=== PATIENT | male | born 2000 | race Caucasian/White ===

== ENCOUNTER → 2020-07-11 10:11 | Outpatient (BNVA) | payer OTHER, SELFPAY | PROVIDERS: Visit Provider Nurse Practitioner Family | DX: J02.9 Acute pharyngitis, unspecified (principal); J06.9 Acute upper respiratory infection, unspecified; B96.89 Other specified bacterial agents as the cause of diseases classified elsewhere | CPT/HCPCS: 87071; 87880 ==

== ENCOUNTER → 2020-12-17 17:47 | Outpatient (BNVA) | payer OTHER, SELFPAY | PROVIDERS: Visit Provider Registered Nurse Neonatal Intensive Care | DX: J02.9 Acute pharyngitis, unspecified (principal); B96.89 Other specified bacterial agents as the cause of diseases classified elsewhere; Z68.42 Body mass index [BMI] 45.0-49.9, adult; Z71.89 Other specified counseling | CPT/HCPCS: 87880 ==

== ENCOUNTER → 2021-03-24 14:20 | Outpatient (BNVA) | payer OTHER, SELFPAY | PROVIDERS: Visit Provider Nurse Practitioner Family | DX: Z20.822 Contact with and (suspected) exposure to COVID-19 (principal); J06.9 Acute upper respiratory infection, unspecified | CPT/HCPCS: 87400; 87635 ==

== ENCOUNTER 2022-02-23 01:53 | Emergency (ER) | payer SELFPAY ==
[2022-02-23 01:59] VITALS: BP 173/104; PULSE 126; RESP 20; O2SAT 97; BMI 45.0
--- NOTE | 2022-02-23 02:05 | CTR_ITS ---
PROCEDURE INFORMATION: Exam: CT Abdomen And Pelvis Without Contrast Exam date and time: 02/23/2022 2:26 AM Age: 21 years old Clinical indication: Abdominal pain; Localized; Patient HX: C/O left sided abd pain TECHNIQUE: Imaging protocol: Computed tomography of the abdomen and pelvis without contrast. Radiation optimization: All CT scans at this facility use at least one of these dose optimization techniques: automated exposure control; mA and/or kV adjustment per patient size (includes targeted exams where dose is matched to clinical indication); or iterative reconstruction. COMPARISON: No relevant prior studies available. RADIATION DOSE METRICS: Total DLP (mGy-cm): 1458.43 FINDINGS: Liver: Fatty liver. Gallbladder and bile ducts: No calcified stones. No ductal dilation. Pancreas: No ductal dilation. Spleen: No splenomegaly. Adrenal glands: Normal. No mass. Kidneys and ureters: No hydronephrosis. Stomach and bowel: No obstruction. No mucosal thickening. Appendix: No evidence of appendicitis. Intraperitoneal space: No free air. No significant fluid collection. Vasculature: No abdominal aortic aneurysm. Lymph nodes: No enlarged lymph nodes. Urinary bladder: Unremarkable as visualized. Reproductive: Unremarkable as visualized. Bones/joints: Unremarkable. No acute fracture. Soft tissues: Unremarkable. CT/CT abdomen pelvis wo con [id number] IMPRESSION: No acute findings.
--- NOTE | 2022-02-23 02:12 | ED_ITS ---
HPI - Abdominal Pain General: Chief Complaint: Abdominal Pain Stated Complaint: Left Side ABD Pain Time Seen by Provider: 02/23/22 02:05 Source: patient Mode of arrival: ambulatory Limitations: no limitations History of Present Illness: 21-year-old male states has been having left lower quadrant pain over the last 2 days. He states is been sharp in nature he rates his pain a 7 out of 10 currently.He denies any radiation of his pain. He denies any vomiting or diarrhea denies any fevers denies any worsening proving factors. Associated Symptoms: Denies chills, dysuria and fever(s) Review of Systems Const: Denies: fever(s), chills, body aches or change in appetite Eyes: Denies: blurry vision or eye discomfort ENMT: Denies: throat pain or dental pain Card: Denies: chest pain Resp: Denies: dyspnea GI: Reports: abdominal pain : Denies: dysuria Musc: Denies: neck pain or back pain Skin/Breast: Denies: rash Neuro: Denies: headache(s) Psych: Denies: depression Pratik/Lymph: Denies: easy bruising All/Imm: Denies: urticaria PFS ED PFSH: Medical History (Updated 02/23/22 @ 04:04 by Kobe Medellin MD) No pertinent past medical history Social History Smoking and tobacco status: never smoked Physical Exam Const: COMMON NORMALS: no acute distress, patient oriented x3 and healthy appearing HENMT: COMMON NORMALS: normocephalic and atraumatic HEAD & SCALP: normocephalic and atraumatic Eye: COMMON NORMALS: Equal, round and reactive pupils present and EOMs intact bilaterally PUPIL: Yes Equal, round and reactive pupils present Neck/C-Spine: COMMON NORMALS: full ROM and supple Chest: COMMONS NORMALS: normal inspection of the chest and normal palpation of entire chest wall Resp: COMMON NORMALS: normal respiratory effort, No retractions, No use of accessory muscles and clear to auscultation bilaterally AUSCULTATION: clear to auscultation bilaterally Cardio: COMMON NORMALS: regular rate, regular rhythm and No murmurs present (Cardio) RATE: regular rate RHYTHM: regular rhythm GI: COMMON NORMALS: Normal to inspection, nondistended, normoactive bowel sounds present, Soft to palpation and no masses PALPATION: Yes Soft to palpation and Yes Tenderness to palpation present (GI) Details: LLQ Extremity: COMMON NORMALS: normal to inspection and full ROM Neuro: COMMON NORMALS: patient oriented x3, moves all extremities and no focal motor deficits Psych: COMMON NORMALS: mental status grossly normal, Normal thought process present and cooperative THOUGHT PROCESS: Normal thought process present Skin: COMMON NORMALS: no rashes or lesions noted and no wounds GENERAL SKIN EXAM: no rashes or lesions noted Course Vital Signs: Vital signs: Vital Signs Pulse Rate 110 H 02/23/22 02:50 Respiratory Rate 15 02/23/22 02:50 Blood Pressure 168/94 02/23/22 02:50 Pulse Oximetry 98 02/23/22 02:50 Oxygen Delivery Me thod 02/23/22 02:20 MDM - Abdominal Pain Medical Decision Making Patient presents here with abdominal pain CT here shows no acute abnormalities blood work is normal as well. He is stable for discharge she is to follow-up PCP and return if worsening. Lab Data 02/23/22 02:20 02/23/22 02:20 Labs/Radiology: Radiology Impressions Abdomen/Pelvis CT 02/23/22 02:05 IMPRESSION: No acute findings. Laboratory Results WBC 14.7 10^3/uL (4.0-10.0) H 02/23/22 02:20 RBC 5.16 10^6/uL (4.1-5.3) 02/23/22 02:20 Hgb 15.0 g/dL (11.7-16.6) 02/23/22 02:20 Hct 45.9 % (42.0-52.0) 02/23/22 02:20 MCV 89.0 fl (80-94) 02/23/22 02:20 MCH 29.1 pg (28.0-34.0) 02/23/22 02:20 MCHC 32.7 g/dL (30.0-36.0) 02/23/22 02:20 RDW 13.1 % (12.1-15.1) 02/23/22 02:20 Plt Count 337 10^3/cmm (130-400) 02/23/22 02:20 MPV 10.3 fL (7.4-10.4) 02/23/22 02:20 Neut % (Auto) 55.4 % 02/23/22 02:20 Lymph % (Auto) 32.5 % 02/23/22 02:20 Mcmullen % (Auto) 10.3 % 02/23/22 02:20 Eos % (Auto) 1.0 % 02/23/22 02:20 Baso % (Auto) 0.3 % 02/23/22 02:20 Neut # (Auto) 8.13 10^3/uL (1.8-7.7) H 02/23/22 02:20 Lymph # (Auto) 4.8 10^3/uL (0.8-4.8) 02/23/22 02:20 Mcmullen # (Auto) 1.5 10^3/uL (0.2-0.9) H 02/23/22 02:20 Eos # (Auto) 0.2 10^3/uL (0.0-0.8) 02/23/22 02:20 Baso # (Auto) 0.0 10^3/uL (0.0-0.1) 02/23/22 02:20 Nucleated RBC % (auto) 0 % 02/23/22 02:20 Nucleated RBCs # 0.0 /100WBC 02/23/22 02:20 Sodium 136 mmol/L (136-145) 02/23/22 02:20 Potassium 3.7 mmol/L (3.5-5.1) 02/23/22 02:20 Chloride 99 mmol/L (98-107) 02/23/22 02:20 Carbon Dioxide 24 mmol/L (22-29) 02/23/22 02:20 Anion Gap 16.7 (5-19) 02/23/22 02:20 BUN 19 mg/dL (6-20) 02/23/22 02:20 Creatinine 0.9 mg/dL (0.7-1.2) 02/23/22 02:20 GFR Calculation 104.6 mL/min (90-130) 02/23/22 02:20 Glucose 121 mg/dL (65-115) H 02/23/22 02:20 Calculated Osmolality 286 mOsm/kg (285-295) 02/23/22 02:20 Calcium 10.1 mg/dL (8.5-10.5) 02/23/22 02:20 Total Bilirubin 0.3 mg/dL (0.15-1.2) 02/23/22 02:20 AST 25 U/L (0-40) 02/23/22 02:20 ALT 43 U/L (0-41) H 02/23/22 02:20 Alkaline Phosphatase 95 U/L (40-130) 02/23/22 02:20 Total Protein 7.6 g/dL (6.6-8.7) 02/23/22 02:20 Albumin 4.6 g/dL (3.5-5.2) 02/23/22 02:20 Globulin 3.0 g/dL (1.3-4.6) 02/23/22 02:20 Lipase 23 U/L (13-60) 02/23/22 02:20 Urine Color Yellow (Yellow) 02/23/22 02:20 Urine Appearance Clear (CLEAR) 02/23/22 02:20 Urine pH 6 (5-7) 02/23/22 02:20 Ur Specific [place] 1.020 (1.005-1.030) 02/23/22 02:20 Urine Protein Trace (Negative) 02/23/22 02:20 Urine Glucose (UA) Norm (Normal) 02/23/22 02:20 Urine Ketones Negative (Negative) 02/23/22 02:20 Urine Blood Neg (Negative) 02/23/22 02:20 Urine Nitrate Negative (Negative) 02/23/22 02:20 Urine Bilirubin Neg (Negative) 02/23/22 02:20 Urine Urobilinogen Norm mg/dL (Negative) 02/23/22 02:20 Ur Leukocyte Esterase Negative (Negative) 02/23/22 02:20 Urine RBC 0-4 /hpf (0-2) H 02/23/22 02:20 Urine WBC None /hpf (0-5) 02/23/22 02:20 Ur Squamous Epith Cells 0-4 /hpf (0-5) H 02/23/22 02:20 Amorphous Sediment Not Reportable 02/23/22 02:20 Urine Bacteria None /hpf (NONE) 02/23/22 02:20 Discharge Plan Discharge Patient Disposition: Home Clinical Impression: Abdominal pain Condition: Stable Prescriptions: New dicyclomine 20 mg tablet 20 mg PO TID PRN (Reason: abd pain) Qty: 20 0RF No Action amoxicillin 500 mg tablet 500 mg PO BID 10 Days Qty: 20 0RF Discharge Orders: Discharge ED (Routine); Ordered 02/23/22 Ordered By: Kobe Medellin Discharge Diet: Advance as tolerated Discharge Activity: Resume usual activity Patient Instructions: Abdominal Pain (ED) Coding Level of Care Code ED Ship Officer for Macyg Fwd Exam Comprehensive
[2022-02-23 02:20] VITALS: BP 168/94; PULSE 119; RESP 16; O2SAT 97
[2022-02-23] MEDS: sodium chloride 0.9% 1,000 ML 999 ML IV (02:22)
[2022-02-23 02:23] VITALS: RESP 17; O2SAT 97
[2022-02-23] MEDS: ondansetron 2 mg/ML SDV 2 mL 4 MG IVP (02:23)
[2022-02-23] MEDS: morphine 4 mg/mL SDV 1 mL IVP (02:23)
[2022-02-23 02:28] LABS: Basophils % 0.3 %; Eosinophils # 0.2 10^3/uL (0.0-0.8); Hematocrit 45.9 % (42.0-52.0); Lymphocytes # 4.8 10^3/uL (0.8-4.8); Lymphocytes % 32.5 %; Mean Corpuscular HGB Conc 32.7 g/dL (30.0-36.0); Mean Corpuscular Hemoglobin 29.1 pg (28.0-34.0); Mean Platelet Volume 10.3 fL (7.4-10.4); Monocytes # 1.5 10^3/uL (0.2-0.9); Monocytes % 10.3 %; Neutrophils # 8.13 10^3/uL (1.8-7.7); Neutrophils % 55.4 %; Nucleated Red Blood Cells % 0 %; Platelet Count 337 10^3/cmm (130-400); Red Blood Count 5.16 10^6/uL (4.1-5.3); Red Cell Distribution Width 13.1 % (12.1-15.1); White Blood Count 14.7 10^3/uL (4.0-10.0)
[2022-02-23 02:42] LABS: Add Urine Culture? No; Add Urine Microscopic? YES; Bilirubin Urine Neg (Negative); Blood Urine Neg (Negative); Glucose Urine UA Norm (Normal); Ketones Urine Negative (Negative); Leukocyte Esterase Urine Negative (Negative); Nitrate Urine Negative (Negative); Protein Urine Trace (Negative); RBC Urine 0-4 /hpf (0-2); Squamous Epithelial Cell Urine 0-4 /hpf (0-5); Urine Appearance Clear (CLEAR); Urine Color Yellow (Yellow); Urobilinogen Urine Norm (Negative); pH Urine 6 (5-7)
[2022-02-23 02:46] LABS: Alanine Aminotransferase 43 U/L (0-41); Albumin Level 4.6 g/dL (3.5-5.2); Alkaline Phosphatase 95 U/L (40-130); Anion Gap 16.7 (5-19); Aspartate Amino Transferase 25 U/L (0-40); Blood Urea Nitrogen 19 mg/dL (6-20); Calcium 10.1 mg/dL (8.5-10.5); Carbon Dioxide 24 mmol/L (22-29); Chloride 99 mmol/L (98-107); Glomerular Filtration Rate 104.6 mL/min (90-130); Glucose 121 mg/dL (65-115); Lipase 23 U/L (13-60); Osmolality Calculated 286 mOsm/kg (285-295); Potassium 3.7 mmol/L (3.5-5.1); Sodium 136 mmol/L (136-145); Total Bilirubin 0.3 mg/dL (0.15-1.2); Total Protein 7.6 g/dL (6.6-8.7)
[2022-02-23 02:50] VITALS: BP 168/94; PULSE 110; RESP 15; O2SAT 98
[2022-02-23 04:15] VITALS: BP 124/68; PULSE 67; RESP 16; O2SAT 96
== END 2022-02-23 04:20 | disposition home or self-care (01) ==
PROVIDERS: Nurse Practitioner Family; Emergency Provider Emergency Medicine
DX: R10.32 Left lower quadrant pain (principal)
CPT/HCPCS: 74176; 80053; 81001; 83690; 85025; 96361; 96374; 96375; 99285; J2270; J2405; J7030

== ENCOUNTER 2022-02-28 20:46 | Emergency (ER) | payer SELFPAY ==
[2022-02-28 20:49] VITALS: BP 151/96; PULSE 103; RESP 21; TEMP 37.5; O2SAT 98
--- NOTE | 2022-02-28 22:23 | W.ED.ABDPA2 ---
HPI - Abdominal Pain General: Chief Complaint: Abdominal Pain Stated Complaint: stomach pain Time Seen by Provider: 02/28/22 22:16 History of Present Illness: 21-year-old male patient comes in today for complaints of left side abdominal pain. Patient reports that he has been ill for about 1 week now. Patient was seen about 5 days ago and was cleared of appendicitis or any acute illness causing his abdominal pain. Patient has been treating himself for constipation. Patient appears nontoxic. Patient appears in mild pain. Associated Symptoms: Reports constipation; Denies fever(s) Review of Systems Const: Denies: fever(s) GI: Reports: abdominal pain and constipation [facility] ED PFSH: Medical History (Updated 02/28/22 @ 23:26 by CHRISTOFER Domínguez) No pertinent past medical history Social History Smoking and tobacco status: never smoked Physical Exam Const: COMMON NORMALS: alert HENMT: COMMON NORMALS: normocephalic HEAD & SCALP: normocephalic Neck/C-Spine: COMMON NORMALS: full ROM Resp: COMMON NORMALS: normal respiratory effort and clear to auscultation bilaterally AUSCULTATION: clear to auscultation bilaterally Cardio: COMMON NORMALS: regular rate and regular rhythm RATE: regular rate RHYTHM: regular rhythm GI: COMMON NORMALS: Soft to palpation AUSCULTATION: Yes normoactive bowel sounds PALPATION: Yes Soft to palpation and Yes Tenderness to palpation present (GI) Details: LLQ : COMMON NORMALS: Yes no CVA tenderness BLADDER/KIDNEY EXAM: Yes no CVA tenderness Back/Pelvis: COMMON NORMALS: no CVA tenderness Neuro: SENSORIUM/ORIENTATION: Yes alert Course Vital Signs: Vital signs: Vital Signs Temperature 99.5 F 02/28/22 20:49 Pulse Rate 103 H 02/28/22 20:49 Respiratory Rate 21 H 02/28/22 20:49 Blood Pressure 151/96 02/28/22 20:49 Pulse Oximetry 98 02/28/22 20:49 Oxygen Delivery Me thod 02/28/22 20:49 MDM - Abdominal Pain Medical Decision Making Patient comes in today for concerns of persistent abdominal pain for about 1 week. On exam abdomen soft with some mild tenderness in the left lower quadrant. Vital signs are normal except for some mild elevation of blood pressure 151 systolic. Differential diagnosis includes but not limited to gastroenteritis, constipation, gastritis, diverticulitis. Reviewed imaging done 5 days ago in the emergency department that included a CT of the abdomen it showed no abnormalities at that time. Repeat labs were improved from prior exam. KUB done showed increased constipation with no sign of obstruction. Believe the patient probably has some increased constipation most likely due to the dicyclomine he was started on. Recommend starting MiraLAX instead of laxative use for his constipation. Suspect the patient was using Ex-Lax and milk of magnesia which is causing more of abdominal discomfort. Reviewed this with patient with recommendations for follow-up with primary care for further instruction. Patient reported understanding and agreed to plan. Lab Data 02/28/22 22:47 02/28/22 22:47 Labs/Radiology: Radiology Impressions KUB X-Ray 02/28/22 22:28 IMPRESSION: [id number] constipation without dilation to indicate obstruction. Laboratory Results WBC 10.3 10^3/uL (4.0-10.0) H 02/28/22 22:47 RBC 4.96 10^6/uL (4.1-5.3) 02/28/22 22:47 Hgb 14.5 g/dL (11.7-16.6) 02/28/22 22:47 Hct 44.5 % (42.0-52.0) 02/28/22 22:47 MCV 89.7 fl (80-94) 02/28/22 22:47 MCH 29.2 pg (28.0-34.0) 02/28/22 22:47 MCHC 32.6 g/dL (30.0-36.0) 02/28/22 22:47 RDW 13.0 % (12.1-15.1) 02/28/22 22:47 Plt Count 307 10^3/cmm (130-400) 02/28/22 22:47 MPV 10.9 fL (7.4-10.4) H 02/28/22 22:47 Neut % (Auto) 55.6 % 02/28/22 22:47 Lymph % (Auto) 32.9 % 02/28/22 22:47 [place] % (Auto) 8.9 % 02/28/22:47 Eos % (Auto) 1.7 % 02/28/22 22:47 Baso % (Auto) 0.5 % 02/28/22 22:47 Neut # (Auto) 5.72 10^3/uL (1.8-7.7) 02/28/22 22:47 Lymph # (Auto) 3.4 10^3/uL (0.8-4.8) 02/28/22 22:47 [place] # (Auto) 0.9 10^3/uL (0.2-0.9) 02/28/22 22:47 Eos # (Auto) 0.2 10^3/uL (0.0-0.8) 02/28/22 22:47 Baso # (Auto) 0.1 10^3/uL (0.0-0.1) 02/28/22 22:47 Nucleated RBC % (auto) 0 % 02/28/22 22: Nucleated RBCs # 0.0 /100WBC 02/28/22 22:47 Sodium 136 mmol/L (136-145) 02/28/22 22:47 Potassium 3.8 mmol/L (3.5-5.1) 02/28/22 22:47 Chloride 101 mmol/L (98-107) 02/28/22 22:47 Carbon Dioxide 24 mmol/L (22-29) 02/28/22 22:47 Anion Gap 14.8 (5-19) 02/28/22 22:47 BUN 13 mg/dL (6-20) 02/28/22 22:47 Creatinine 0.9 mg/dL (0.7-1.2) 02/28/22 22:47 GFR Calculation 104.6 mL/min (90-130) 02/28/22 22:47 Glucose 104 mg/dL (65-115) 02/28/22 22:47 Calculated Osmolality 282 mOsm/kg (285-295) L 02/28/22 22:47 Calcium 9.3 mg/dL (8.5-10.5) 02/28/22 22:47 Total Bilirubin 0.2 mg/dL (0.15-1.2) 02/28/22 22:47 AST 19 U/L (0-40) 02/28/22 22:47 ALT 39 U/L (0-41) 02/28/22 22:47 Alkaline Phosphatase 111 U/L (40-130) 02/28/22 22:47 Total Protein 7.0 g/dL (6.6-8.7) 02/28/22 22:47 Albumin 4.3 g/dL (3.5-5.2) 02/28/22 22:47 Globulin 2.7 g/dL (1.3-4.6) 02/28/22 22:47 Lipase 29 U/L (13-60) 02/28/22 22:47 Urine Color Yellow (Yellow) 02/28/22 23:00 Urine Appearance Clear (CLEAR) 02/28/22 23:00 Urine pH 7 (5-7) 02/28/22 23:00 Ur Specific [place] 1.010 (1.005-1.030) 02/28/22 23:00 Urine Protein Neg (Negative) 02/28/22 23:00 Urine Glucose (UA) Norm (Normal) 02/28/22 23:00 Urine Ketones Negative (Negative) 02/28/22 23:00 Urine Blood Neg (Negative) 02/28/22 23:00 Urine Nitrate Negative (Negative) 02/28/22 23:00 Urine Bilirubin Neg (Negative) 02/28/22 23:00 Urine Urobilinogen Neg mg/dL (Negative) 02/28/22 23:00 Ur Leukocyte Esterase Negative (Negative) 02/28/22 23:00 Discharge Plan Discharge Patient Disposition: Home Clinical Impression: Constipation Qualifiers: Constipation type: unspecified constipation type Qualified Code(s): K59.00 - Constipation, unspecified Abdominal pain Qualifiers: Abdominal location: left lower quadrant Qualified Code(s): R10.32 - Left lower quadrant pain Condition: Stable Prescriptions: New Miralax 17 gram/dose powder 17 g PO BID PRN (Reason: constipation) Qty: 510 0RF ondansetron 4 mg tablet,disintegrating 4 mg PO Q8H PRN (Reason: nausea and vomiting) Qty: 10 0RF No Action amoxicillin 500 mg tablet 500 mg PO BID 10 Days Qty: 20 0RF dicyclomine 20 mg tablet 20 mg PO TID PRN (Reason: abd pain) Qty: 20 0RF Discharge Orders: Discharge ED (Routine); Ordered 03/01/22 Ordered By: Shine Rose Patient Instructions: Abdominal Pain (ED), Opioid Safety, Pain Management Activity Restrictions/Additional Instructions: Use MiraLAX 17 g 3 times a day until good bowel results. Drink plenty of water while using MiraLAX for constipation. Eat a healthy diet with plenty of fresh fruits and vegetables. Follow-up with primary care in 2 to 3 days for recheck. Return to emergency room for worsening symptoms such as inability to hold fluids down, blood in vomit or stool, or new concerns. Coding Level of Care Code ED It Risk Analyst for Justin Oliveros
--- NOTE | 2022-02-28 22:28 | XRR_ITS ---
PROCEDURE INFORMATION: Exam: XR Abdomen Exam date and time: 02/28/2022 10:39 PM Age: 21 years old Clinical indication: Abdominal pain; Additional info: Abd pain TECHNIQUE: Imaging protocol: Radiologic exam of the abdomen. Views: Frontal supine view of the abdomen. 1 View. COMPARISON: CT abdomen pelvis con [id number] 02/23/2022 2:26 AM FINDINGS: Gastrointestinal tract: [id number] constipation without dilation to indicate obstruction. Bones/joints: Unremarkable. XR/XR KUB [id number] IMPRESSION: Vrbr-wy-[id number] constipation without dilation to indicate obstruction.
[2022-02-28] MEDS: HYDROcodone-acetaminophen 10-325 mg Tablet 1 TAB PO (22:53)
[2022-02-28 23:06] LABS: Add Urine Microscopic? NO; Charge for UA Resulting for Rev
[2022-02-28 23:10] LABS: Basophils # 0.1 10^3/uL (0.0-0.1); Basophils % 0.5 %; Eosinophils # 0.2 10^3/uL (0.0-0.8); Eosinophils % 1.7 %; Hematocrit 44.5 % (42.0-52.0); Hemoglobin 14.5 g/dL (11.7-16.6); Lymphocytes # 3.4 10^3/uL (0.8-4.8); Lymphocytes % 32.9 %; Mean Corpuscular HGB Conc 32.6 g/dL (30.0-36.0); Mean Corpuscular Hemoglobin 29.2 pg (28.0-34.0); Mean Corpuscular Volume 89.7 fl (80-94); Mean Platelet Volume 10.9 fL (7.4-10.4); Monocytes # 0.9 10^3/uL (0.2-0.9); Monocytes % 8.9 %; Neutrophils # 5.72 10^3/uL (1.8-7.7); Neutrophils % 55.6 %; Nucleated Red Blood Cells % 0 %; Platelet Count 307 10^3/cmm (130-400); Red Blood Count 4.96 10^6/uL (4.1-5.3); White Blood Count 10.3 10^3/uL (4.0-10.0)
[2022-02-28 23:28] LABS: Bilirubin Urine Neg (Negative); Blood Urine Neg (Negative); Glucose Urine UA Norm (Normal); Ketones Urine Negative (Negative); Leukocyte Esterase Urine Negative (Negative); Nitrate Urine Negative (Negative); Protein Urine Neg (Negative); Urine Appearance Clear (CLEAR); Urine Color Yellow (Yellow); Urobilinogen Urine Neg (Negative); pH Urine 7 (5-7)
[2022-02-28 23:40] LABS: Alanine Aminotransferase 39 U/L (0-41); Albumin Level 4.3 g/dL (3.5-5.2); Alkaline Phosphatase 111 U/L (40-130); Anion Gap 14.8 (5-19); Aspartate Amino Transferase 19 U/L (0-40); Blood Urea Nitrogen 13 mg/dL (6-20); Calcium 9.3 mg/dL (8.5-10.5); Carbon Dioxide 24 mmol/L (22-29); Chloride 101 mmol/L (98-107); Globulin 2.7 g/dL (1.3-4.6); Glomerular Filtration Rate 104.6 mL/min (90-130); Glucose 104 mg/dL (65-115); Lipase 29 U/L (13-60); Osmolality Calculated 282 mOsm/kg (285-295); Potassium 3.8 mmol/L (3.5-5.1); Sodium 136 mmol/L (136-145); Total Bilirubin 0.2 mg/dL (0.15-1.2)
== END 2022-03-01 00:40 | disposition home or self-care (01) ==
PROVIDERS: Emergency Provider Nurse Practitioner Family
DX: K59.00 Constipation, unspecified (principal); R10.32 Left lower quadrant pain
CPT/HCPCS: 74018; 80053; 81003; 83690; 85025; 99284

== ENCOUNTER → 2022-08-11 09:37 | Outpatient (BNVA) | payer SELFPAY | DX: J02.9 Acute pharyngitis, unspecified (principal) | CPT/HCPCS: 87880 ==

== ENCOUNTER 2022-11-25 10:07 | Emergency (ER) | payer OTHER, SELFPAY ==
[2022-11-25 10:27] VITALS: BMI 41.3
[2022-11-25 10:28] VITALS: BP 144/86; PULSE 71; RESP 16; TEMP 36.5; O2SAT 97
[2022-11-25] MEDS: tetracaine 0.5% Op Soln 4 mL Btl 1 DROP EYE-LEFT (11:32)
--- NOTE | 2022-11-25 11:34 | ED_ITS ---
HPI - Eye Problem General: Chief complaint: Eye Problems Stated complaint: metal in left eye Time Seen by Provider: 11/25/22 10:32 Source: patient Mode of arrival: ambulatory History of Present Illness: 22-year-old male presents to the emergency room with complaint of redness in the left eye. He was working yesterday and got something in the left eye it is progressively worsened. He is able to visualize a small sarah of something in the lateral portion of the left eye. Just near the iris. He is unsure of his last tetanus shot. 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 Severity: moderate Associated symptoms: Denies fever(s) Review of Systems Const: Denies: fever(s) or chills Eyes: Reports: eye discomfort and eye redness; Denies: change in vision or blurry vision [facility] ED PFSH: Medical History No pertinent past medical history Social History Smoking and tobacco status: never smoked Physical Exam Const: GENERAL APPEARANCE: cooperative and comfortable ORIENTATION/CONSCIOUSNESS: Yes awake, Yes oriented to person, Yes oriented to place and Yes oriented to time HENMT: COMMON NORMALS: normocephalic, atraumatic and hearing grossly normal bilaterally HEAD & SCALP: normocephalic and atraumatic Eye: OTHER: Tetracaine applied to the left eye was able to visualize a small sarah of metallic debris into 3 o'clock position at the very edge of the cornea. Attempted to remove with a cotton swab unsuccessful. Neuro: SENSORIUM/ORIENTATION: Yes oriented to person, Yes oriented to place and Yes oriented to time Skin: COMMON NORMALS: no rashes or lesions noted GENERAL SKIN EXAM: no rashes or lesions noted Course Vital Signs: Vital signs: Vital Signs Temperature 97.7 F 11/25/22 10:28 Pulse Rate 71 11/25/22 10:28 Respiratory Rate 16 11/25/22 10:28 Blood Pressure 144/86 11/25/22 10:28 Pulse Oximetry 97 11/25/22 10:28 Oxygen Delivery Me thod Room Air 11/25/22 10:28 MDM - Eye Problem Medical Decision Making Concerned about this being at the edge of the cornea where it is thin causing damage to the sclera or even lifting up the edge of the cornea when extending the injury will refer to Dr. Georges's office he is given an outpatient appointment for approximately an hour to an hour and a half in his office he was given updated tetanus here hydrocodone for pain single tablet follow-up with Dr. Georges at ophthalmology. Discharge Plan Discharge Patient Disposition: Home Clinical Impression: Foreign body in cornea, left eye, initial encounter Condition: Stable Prescriptions: No Action Prilosec OTC 20 mg Tablet,Delayed Release (Dr/Ec) 20 mg PO BEDTIME Probiotic Blend 2 billion cell-50 mg Capsule 2 cap PO BEDTIME magnesium oxide 400 mg magnesium Tablet 400 mg PO BEDTIME Discharge Orders: Discharge ED (Routine); Ordered 11/25/22 Ordered By: Guy Toussaint Discharge Diet: Usual diet Discharge Activity: Resume usual activity Patient Instructions: Opioid Safety, Pain Management Activity Restrictions/Additional Instructions: He will be discharged from the emergency room to Dr. Georges's office. Dr. Georges is a bunk assembler in [place]. He will review removing the foreign body and follow-up care with you. Coding Level of Care Code ED Chief Gauger for Justin Oliveros
[2022-11-25] MEDS: tetanus-dipt-pertussis 0.5 mL SDV IM (11:44)
[2022-11-25] MEDS: HYDROcodone-acetaminophen 5-325 mg Tablet 1 TAB PO (11:44)
[2022-11-25 11:50] VITALS: PULSE 87; RESP 16; O2SAT 95
== END 2022-11-25 11:52 | disposition home or self-care (01) ==
PROVIDERS: Emergency Provider Family Medicine
DX: T15.02XA Foreign body in cornea, left eye, initial encounter (principal); X58.XXXA Exposure to other specified factors, initial encounter; Z23 Encounter for immunization
CPT/HCPCS: 90471; 90715; 99283

== ENCOUNTER → 2023-06-02 17:31 | Outpatient (BNVA) | payer SELFPAY | PROVIDERS: Visit Provider Nurse Practitioner | DX: R10.9 Unspecified abdominal pain (principal) | CPT/HCPCS: 81000 ==

== ENCOUNTER 2023-07-24 20:31 | Emergency (ER) | payer SELFPAY ==
[2023-07-24 20:34] VITALS: BP 170/90; PULSE 91; RESP 17; TEMP 36.6; O2SAT 98; BMI 43.3
--- NOTE | 2023-07-24 20:42 | ECG_ITS ---
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 Measurements Intervals [place] Rate: 96 P: 31 AL: 145 QRS: 24 QRSD: 102 T: 29 QT: 326 QTc: 413 Interpretive Statements SINUS RHYTHM No previous ECG available for comparison Electronically Signed On 07-24-2023 22:49:28 CDT by Victor Manuel Bocanegra M.D. [id number]
--- NOTE | 2023-07-24 21:17 | W.ED.DIZZY ---
HPI - Dizziness General: Chief Complaint: Dizziness Stated Complaint: dizzy for week Time Seen by Provider: 07/24/23 21:14 History of Present Illness: HPI Narrative: 23-year-old male patient comes in today with complaints of dizziness. Patient appears nontoxic. Patient appears in no pain. Patient does endorse some sinus symptoms. 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 Current occupational exposures/hazards: Yes Current gender identity: Male Physical Exam Const: COMMON NORMALS: alert HENMT: COMMON NORMALS: normocephalic HEAD & SCALP: normocephalic Neck/C-Spine: COMMON NORMALS: full ROM Resp: COMMON NORMALS: normal respiratory effort and clear to auscultation bilaterally AUSCULTATION: clear to auscultation bilaterally Cardio: COMMON NORMALS: regular rate RATE: regular rate GI: COMMON NORMALS: non-tender Back/Pelvis: COMMON NORMALS: thoracic and lumbar spine normal to inspection Extremity: COMMON NORMALS: full ROM Neuro: SENSORIUM/ORIENTATION: Yes alert Skin: COMMON NORMALS: turgor normal GENERAL SKIN EXAM: turgor normal Course Vital Signs: Vital signs: Vital Signs Temperature 98 F 07/24/23 20:34 Pulse Rate 103 H 07/24/23 21:32 Respiratory Rate 17 07/24/23 20:34 Blood Pressure 163/110 07/24/23 21:32 Pulse Oximetry 98 07/24/23 20:34 Oxygen Delivery Me thod Room Air 07/24/23 20:34 MDM - Dizziness Medical Decision Making 23-year-old male patient comes in today with dizziness. On exam patient appears nontoxic. Patient moves all extremities well. Respirations are even lungs are clear to auscultation. No edema is noted in extremities. Patient had some mild orthostatic hypotension with his blood pressure and pulse rate on standing dropping to 130s systolic from 170 systolic and pulse rate going from the 80s to the 125's. Differential diagnosis includes orthostatic hypotension, dehydration, viral syndrome, anxiety about health, intracranial bleed, migraine headache. CT of the head was normal. CBC had some mild leukocytosis at 11,000, CMP was unremarkable. Reviewed exam with patient with recommendations for 1 L of IV fluids due to patient's orthostatic hypotension. Patient refused this and wanted to go home he has been given some meclizine which helped his dizziness. Recommended patient follow-up with primary care in 2 to 3 days for recheck. Prescription for meclizine 25 3 times a day for 5 days was provided. Lab Data 07/24/23 21:47 07/24/23 21:[address] 07/24/23 21:21 IMPRESSION: No acute intracranial abnormality. Laboratory Results WBC 11.45 10^3/uL (3.29-11.43) H 07/24/23 21:47 RBC 5.41 10^6/uL (3.85-5.65) 07/24/23 21:47 Hgb 16.10 g/dL (11.27-16.99) 07/24/23 21:47 Hct 48.3 % (37-53) 07/24/23 21:47 MCV 89.3 fl (82-101) 07/24/23 21:47 MCH 29.8 pg (27-33) 07/24/23 21:47 MCHC 33.3 g/dL (30-55) 07/24/23 21:47 RDW 12.8 % (12.1-15.1) 07/24/23 21:47 Plt Count 317 10^3/cmm (157-399) 07/24/23 21:47 MPV 10.8 fL (7.4-10.4) H 07/24/23 21:47 Neut % (Auto) 52.0 % 07/24/23 21:47 Lymph % (Auto) 35.1 % 07/24/23 21:47 Logan % (Auto) 10.4 % 07/24/23 21:47 Eos % (Auto) 1.7 % 07/24/23 21:47 Baso % (Auto) 0.5 % 07/24/23 21:47 Neut # (Auto) 5.95 10^3/uL (1.8-7.7) 07/24/23 21:47 Lymph # (Auto) 4.0 10^3/uL (0.8-4.8) 07/24/23 21:47 Logan # (Auto) 1.2 10^3/uL (0.2-0.9) H 07/24/23 21:47 Eos # (Auto) 0.2 10^3/uL (0.0-0.8) 07/24/23 21:47 Baso # (Auto) 0.1 10^3/uL (0.0-0.1) 07/24/23 21:47 Nucleated RBC % (auto) 0 % 07/24/23 21:47 Nucleated RBCs # 0.0 /100WBC 07/24/23 21:47 ESR 14 mm/hr (0-10) H 07/24/23 21:47 Sodium 136 mmol/L (136-145) 07/24/23 21:47 Potassium 3.8 mmol/L (3.5-5.1) 07/24/23 21:47 Chloride 100 mmol/L (98-107) 07/24/23 21:47 Carbon Dioxide 23 mmol/L (22-29) 07/24/23 21:47 Anion Gap 16.8 (5-19) 07/24/23 21:47 BUN 20 mg/dL (6-20) 07/24/23 21:47 Creatinine 1.0 mg/dL (0.7-1.2) 07/24/23 21:47 GFR Calculation 91.0 mL/min (90-130) 07/24/23 21:47 Glucose 97 mg/dL (65-115) 07/24/23 21:47 Calculated Osmolality 285 mOsm/kg (285-295) 07/24/23 21:47 Calcium 9.8 mg/dL (8.5-10.5) 07/24/23 21:47 Total Bilirubin 0.2 mg/dL (0.15-1.2) 07/24/23 21:47 AST 18 U/L (0-40) 07/24/23 21:47 ALT 35 U/L (0-41) 07/24/23 21:47 Alkaline Phosphatase 105 U/L (40-130) 07/24/23 21:47 C-Reactive Protein 3.5 mg/L (0.0-4.9) 07/24/23 21:47 Total Protein 7.6 g/dL (6.6-8.7) 07/24/23 21:47 Albumin 4.4 g/dL (3.5-5.2) 07/24/23 21:47 Globulin 3.2 g/dL (1.3-4.6) 07/24/23 21:47 All radiology interpretation(s) finalized by discharge Discharge Plan Discharge Patient Disposition: Home Clinical Impression: Orthostatic hypotension Condition: Stable Prescriptions: New meclizine 25 mg tablet 25 mg PO TID PRN (Reason: dizziness) Qty: 14 0RF No Action dicyclomine 20 mg tablet 40 mg PO TID PRN (Reason: abdominal pain) Qty: 180 2RF Prilosec OTC 20 mg Tablet,Delayed Release (Dr/Ec) 20 mg PO BEDTIME Discharge Orders: Discharge ED (Routine); Ordered 07/24/23 Ordered By: Shine Rose Referrals: Sung Franks MD [Primary Care Provider] - Discharge Diet: Usual diet Discharge Activity: Increase activity as tolerated Patient Instructions: Dizziness (ED) Activity Restrictions/Additional Instructions: Follow-up with primary care in 3 to 5 days for recheck. Drink plenty of water and fluids. Use meclizine as needed for dizziness. Return to ER for new concerns. Coding Level of Care Code ED Bag Bundler for Justin Oliveros
--- NOTE | 2023-07-24 21:21 | CTR_ITS ---
PROCEDURE INFORMATION: Exam: CT Head Without Contrast Exam date and time: 07/24/2023 9:27 PM Age: 23 years old Clinical indication: Dizziness; Patient HX: C/O intermittent dizzines x 1 week TECHNIQUE: Imaging protocol: Computed tomography of the head without contrast. Radiation optimization: All CT scans at this facility use at least one of these dose optimization techniques: automated exposure control; mA and/or kV adjustment per patient size (includes targeted exams where dose is matched to clinical indication); or iterative reconstruction. COMPARISON: No relevant prior studies available. RADIATION DOSE METRICS: Total DLP (mGy-cm): 895.18 FINDINGS: Brain: Normal. No hemorrhage. Unremarkable white matter. No mass effect. Cerebral ventricles: No ventriculomegaly. Paranasal sinuses: Visualized sinuses are unremarkable. No fluid levels. Mastoid air cells: Visualized mastoid air cells are well aerated. Bones/joints: Unremarkable. No acute fracture. Soft tissues: Unremarkable. CT/CT head wo con* [id number] IMPRESSION: No acute intracranial abnormality.
[2023-07-24 21:32] VITALS: BP 136/97; BP 163/110; BP 164/92; PULSE 103; PULSE 114; PULSE 129
[2023-07-24] MEDS: meclizine 25 mg tablet PO (21:32)
[2023-07-24 21:52] LABS: Basophils # 0.1 10^3/uL (0.0-0.1); Basophils % 0.5 %; Eosinophils # 0.2 10^3/uL (0.0-0.8); Eosinophils % 1.7 %; Hematocrit 48.3 % (37-53); Lymphocytes % 35.1 %; Mean Corpuscular HGB Conc 33.3 g/dL (30-55); Mean Corpuscular Hemoglobin 29.8 pg (27-33); Mean Corpuscular Volume 89.3 fl (82-101); Mean Platelet Volume 10.8 fL (7.4-10.4); Monocytes # 1.2 10^3/uL (0.2-0.9); Monocytes % 10.4 %; Neutrophils # 5.95 10^3/uL (1.8-7.7); Nucleated Red Blood Cells % 0 %; Platelet Count 317 10^3/cmm (157-399); Red Blood Count 5.41 10^6/uL (3.85-5.65); Red Cell Distribution Width 12.8 % (12.1-15.1); White Blood Count 11.45 10^3/uL (3.29-11.43)
[2023-07-24 21:56] LABS: Erythrocyte Sedimentation Rate 14 mm/hr (0-10)
[2023-07-24 22:10] LABS: Alanine Aminotransferase 35 U/L (0-41); Albumin Level 4.4 g/dL (3.5-5.2); Alkaline Phosphatase 105 U/L (40-130); Anion Gap 16.8 (5-19); Aspartate Amino Transferase 18 U/L (0-40); Blood Urea Nitrogen 20 mg/dL (6-20); C Reactive Protein 3.5 mg/L (0.0-4.9); Calcium 9.8 mg/dL (8.5-10.5); Carbon Dioxide 23 mmol/L (22-29); Chloride 100 mmol/L (98-107); Creatinine Clr Calc Pharmacy 186.3505; Globulin 3.2 g/dL (1.3-4.6); Glucose 97 mg/dL (65-115); Osmolality Calculated 285 mOsm/kg (285-295); Potassium 3.8 mmol/L (3.5-5.1); Sodium 136 mmol/L (136-145); Total Bilirubin 0.2 mg/dL (0.15-1.2); Total Protein 7.6 g/dL (6.6-8.7)
[2023-07-24 22:51] VITALS: BP 136/71; PULSE 91; RESP 17; TEMP 36.6; O2SAT 98
== END 2023-07-24 22:52 | disposition home or self-care (01) ==
PROVIDERS: Emergency Provider Nurse Practitioner Family; PCP Family Medicine
DX: I95.1 Orthostatic hypotension (principal); F17.290 Nicotine dependence, other tobacco product, uncomplicated
CPT/HCPCS: 36415; 70450; 80053; 85025; 85651; 86140; 93005; 99284; J8597

== ENCOUNTER 2024-04-06 15:34 | Emergency (ER) | payer SELFPAY ==
[2024-04-06] VITALS (8 sets, daily range): BP systolic 143–197; BP diastolic 82–122; PULSE 95–114; RESP 16; TEMP 36.7; O2SAT 95–98; BMI 42.5
--- NOTE | 2024-04-06 15:35 | XRR_ITS ---
PROCEDURE INFORMATION: Exam: XR Chest Exam date and time: 04/06/2024 3:49 PM Age: 23 years old Clinical indication: Pain; Chest pressure; Additional info: Cp TECHNIQUE: Imaging protocol: Radiologic exam of the chest. Views: 1 view. COMPARISON: CR XR KUB [id number] 02/28/2022 10:39 PM FINDINGS: Lungs: Unremarkable. No consolidation. Pleural spaces: Unremarkable. No pleural effusion. No pneumothorax. Heart/Mediastinum: Unremarkable. No cardiomegaly. Bones/joints: Unremarkable. XR/XR chest 1V portable [id number] IMPRESSION: No acute findings.
--- NOTE | 2024-04-06 15:52 | ED_ITS ---
HPI - Chest Pain 2 General: Chief Complaint: Chest Pain Stated Complaint: chest pressure Time Seen by Provider: 04/06/24 15:36 Source: patient Mode of arrival: ambulatory Limitations: no limitations History of Present Illness: 23-year-old male states he has been havi ng intermittent chest pains been going on for roughly a week. He states been a sharp pain has been intermittent nature. States pain currently is a 3 out of 10 he denies any shortness of breath denies any vomiting or diarrhea. Denies any history of heart disease. Related Data Previous Rx's Medication Instructions Recorded omeprazole magnesium 20 mg 20 mg PO BEDTIME #90 tabs 03/06/24 tablet,delayed release (Prilosec OTC) dicyclomine 20 mg tablet 40 mg (2 x 20 mg) PO TID PRN 03/07/24 abdominal pain #180 tabs metoprolol succinate 50 mg 50 mg PO DAILY #30 tabs 04/06/24 tablet,extended release 24 hr Allergies Allergy/AdvReac Type Severity Reaction Status Date / Time No Known Allergies Allergy Verified 07/26/23 08:38 [facility] ED 2 PFSH: Medical History Cannabis use disorder, mild, abuse Tobacco use disorder No pertinent past medical history Social History Smoking and tobacco/nicotine status: current every day tobacco/nicotine user e- cigarettes E-Cigarette Details: with nicotine Alcohol intake: never Substance/Drug Use: current Substance/Drug use frequency: daily Adopted: No service: No 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 Current occupational exposures/hazards: Yes Current gender identity: Male Physical Exam 2 Const: COMMON NORMALS: no acute distress, patient oriented x3 and healthy appearing HENMT: COMMON NORMALS: normocephalic and atraumatic HEAD & SCALP: n ormocephalic and atraumatic Eye: COMMON NORMALS: Equal, round and reactive pupils present, EOMs intact bilaterally and conjunctivae normal CONJUNCTIVA: Yes conjunctivae normal P UPIL: Yes Equal, round and reactive pupils present Neck/C-Spine: COMMON NORMALS: full ROM and supple Chest: COMMONS NORMALS: normal inspection of the chest Resp: COMMON NORMALS: normal respiratory effort, No retractions, No use of accessory muscles and clear to auscultation bilaterally AUSCULTATION: clear to auscultation bilaterally Cardio: COMMON NORMALS: regular rhythm and No murmurs present (Cardio) R ATE: tachycardic RHYTHM: regular rhythm GI: COMMON NORMALS: Normal to inspection, nondistended, normoactive bowel sounds present, Soft to palpation, non-tender and no masses PALPATION: Yes Soft to palpation Extremity: COMMON NORMALS: normal to inspection and full ROM Neuro: COMMON NORMALS: patient oriented x3, moves all extremities and no focal motor deficits Psych: COMMON NORMALS: mental status grossly normal, Normal thought process present and cooperative THOUGHT PROCESS: Normal thought process present Skin: COMMON NORMALS: no rashes or lesions noted and no wounds GENERAL SKIN EXAM: no rashes or lesions noted Course 2 Vital Signs: Vital signs: Vital Signs Temperature 98.1 F 04/06/24 15:36 Pulse Rate 106 H 04/06/24 17:18 Respiratory Rate 16 04/06/24 17:18 Blood Pressure 173/105 04/06/24 17:18 Pulse Oximetry 96 04/06/24 17:18 Oxygen Delivery Me thod Room Air 04/06/24 15:36 MDM - Chest Pain Medical Decision Making Patient presents for chest pain has been going on for over a week he is hypertensive here he feels improved here D-dimer troponin are negative here no signs of ACS no signs of dissection no signs of pulm embolism we will start him on metoprolol he is follow-up with PCP return if worsening he understands agrees to plan. Medical Records I reviewed the patient's medical records. Lab Data I reviewed the patient's lab results. 04/06/24 15:51 04/06/24 15:51 Radiology Impressions Chest X-Ray 04/06/24 15:35 IMPRESSION: No acute findings. Laboratory Results WBC 9.73 10^3/uL (3.29-11.43) 04/06/24 15:51 RBC 5.13 10^6/uL (3.85-5.65) 04/06/24 15:51 Hgb 15.00 g/dL (11.27-16.99) 04/06/24 15:51 Hct 45.6 % (37-53) 04/06/24 15:51 MCV 88.9 fl (82-101) 04/06/24 15:51 MCH 29.2 pg (27-33) 04/06/24 15:51 MCHC 32.9 g/dL (30-55) 04/06/24 15:51 RDW 12.7 % (12.1-15.1) 04/06/24 15:51 Plt Count 318 10^3/cmm (157-399) 04/06/24 15:51 MPV 10.3 fL (7.4-10.4) 04/06/24 15:51 Neut % (Auto) 62.2 % 04/06/24 15:51 Lymph % (Auto) 26.8 % 04/06/24 15:51 [place] % (Auto) 9.4 % 04/06/24 15:51 Eos % (Auto) 0.9 % 04/06/24 15:51 Baso % (Auto) 0.4 % 04/06/24 15:51 Neut # (Auto) 6.05 10^3/uL (1.8-7.7) 04/06/24 15:51 Lymph # (Auto) 2.6 10^3/uL (0.8-4.8) 04/06/24 15:51 [place] # (Auto) 0.9 10^3/uL (0.2-0.9) 04/06/24 15:51 Eos # (Auto) 0.1 10^3/uL (0.0-0.8) 04/06/24 15:51 Baso # (Auto) 0.0 10^3/uL (0.0-0.1) 04/06/24 15:51 Nucleated RBC % (auto) 0 % 04/06/24 15: Nucleated RBCs # 0.0 /100WBC 04/06/24 15:51 D-Dimer 0.32 ug/mLFEU (0-0.59) 04/06/24 15:51 Sodium 140 mmol/L (136-145) 04/06/24 15:51 Potassium 4.1 mmol/L (3.5-5.1) 04/06/24 15:51 Chloride 102 mmol/L (98-107) 04/06/24 15:51 Carbon Dioxide 24 mmol/L (22-29) 04/06/24 15:51 Anion Gap 18.1 (5-19) 04/06/24 15:51 BUN 16 mg/dL (6-20) 04/06/24 15:51 Creatinine 1.0 mg/dL (0.7-1.2) 04/06/24 15:51 GFR Calculation 91.0 mL/min (90-130) 04/06/24 15:51 Glucose 105 mg/dL (65-115) 04/06/24 15:51 Calculated Osmolality 292 mOsm/kg (285-295) 04/06/24 15:51 Calcium 9.9 mg/dL (8.5-10.5) 04/06/24 15:51 Total Bilirubin 0.2 mg/dL (0.15-1.2) 04/06/24 15:51 AST 20 U/L (0-40) 04/06/24 15:51 ALT 34 U/L (0-41) 04/06/24 15:51 Alkaline Phosphatase 99 U/L (40-130) 04/06/24 15:51 Troponin T Baseline < 6 ng/L (0-15) 04/06/24 15:51 Total Protein 7.3 g/dL (6.6-8.7) 04/06/24 15:51 Albumin 5.0 g/dL (3.5-5.2) 04/06/24 15:51 Globulin 2.3 g/dL (1.3-4.6) 04/06/24 15:51 Lipase 31 U/L (13-60) 04/06/24 15:51 All radiology interpretation(s) finalized by discharge EKG Data EKG 1: I personally reviewed and interpreted this EKG as follows: EKG interpretation date: 04/06/24 EKG interpretation time: 15:39 Interpretation: sinus tach hr [address] elevation qrs 104 qtc 378 Discharge Plan Discharge Patient Disposition: Home Clinical Impression: Chest pain, Hypertension Condition: Stable Prescriptions: New metoprolol succinate 50 mg tablet extended release 24 hr 50 mg PO DAILY Qty: 30 0RF No Action Prilosec OTC 20 mg tablet,delayed release (DR/EC) 20 mg PO BEDTIME Qty: 90 1RF dicyclomine 20 mg tablet 40 mg PO TID PRN (Reason: abdominal pain) Qty: 180 2RF Discharge Orders: Discharge ED (Routine); Ordered 04/06/24 Ordered By: Kobe Medellin Referrals: Sung Franks MD [Primary Care Provider] - 4-7 days Discharge Diet: Advance as tolerated Discharge Activity: Resume usual activity Patient Instructions: Chest Pain (ED), Hypertension (ED) Coding Level of Care Code ED Edge Bander Hand for Justin Oliveros
[2024-04-06 15:57] LABS: Basophils % 0.4 %; Eosinophils # 0.1 10^3/uL (0.0-0.8); Eosinophils % 0.9 %; Hematocrit 45.6 % (37-53); Lymphocytes # 2.6 10^3/uL (0.8-4.8); Lymphocytes % 26.8 %; Mean Corpuscular HGB Conc 32.9 g/dL (30-55); Mean Corpuscular Hemoglobin 29.2 pg (27-33); Mean Corpuscular Volume 88.9 fl (82-101); Mean Platelet Volume 10.3 fL (7.4-10.4); Monocytes # 0.9 10^3/uL (0.2-0.9); Monocytes % 9.4 %; Neutrophils # 6.05 10^3/uL (1.8-7.7); Neutrophils % 62.2 %; Nucleated Red Blood Cells % 0 %; Platelet Count 318 10^3/cmm (157-399); Red Blood Count 5.13 10^6/uL (3.85-5.65); Red Cell Distribution Width 12.7 % (12.1-15.1); White Blood Count 9.73 10^3/uL (3.29-11.43)
[2024-04-06 16:22] LABS: Troponin(5th) Baseline < 6 ng/L (0-15)
[2024-04-06 16:24] LABS: Alanine Aminotransferase 34 U/L (0-41); Alkaline Phosphatase 99 U/L (40-130); Anion Gap 18.1 (5-19); Aspartate Amino Transferase 20 U/L (0-40); Blood Urea Nitrogen 16 mg/dL (6-20); Calcium 9.9 mg/dL (8.5-10.5); Carbon Dioxide 24 mmol/L (22-29); Chloride 102 mmol/L (98-107); Creatinine Clr Calc Pharmacy 184.6114; Globulin 2.3 g/dL (1.3-4.6); Glucose 105 mg/dL (65-115); Lipase 31 U/L (13-60); Osmolality Calculated 292 mOsm/kg (285-295); Potassium 4.1 mmol/L (3.5-5.1); Sodium 140 mmol/L (136-145); Total Bilirubin 0.2 mg/dL (0.15-1.2); Total Protein 7.3 g/dL (6.6-8.7)
[2024-04-06 16:47] LABS: D Dimer 0.32 ug/mLFEU (0-0.59)
[2024-04-06] MEDS: labetalol 5 mg/mL SDV 20mL 10 MG IVP ×2 (16:58→17:24)
--- NOTE | 2024-04-06 17:35 | ECG_ITS ---
[facility] Date: 2024-[facility]06 Pat Name: Eladio Huizar Department: Room: Gender: Male Building Performance Specialist: : 2000 Requested By: Kobe Medellin Order Number: [id number] Reading MD: CHANCE CHAUDHRY Measurements Intervals Branch Rate: 97 P: 33 RI: 181 QRS: -3 QRSD: 105 T: 46 QT: 319 QTc: 407 Interpretive Statements SINUS RHYTHM LOW QRS VOLTAGE IN PRECORDIAL LEADS [QRS DEFLECTION < 1.0 mV IN CHEST LEADS] INCOMPLETE RIGHT BUNDLE BRANCH BLOCK [90+ ms QRS DURATION, TERMINAL R IN V1/V2, 40+ ms S IN I/aVL/V4/V5/V6] Compared to ECG 04/06/2024 15:39:30 Sinus tachycardia no longer present Myocardial infarct finding no longer present Electronically Signed On 04-07-2024 18:42:14 ASSISTANT PRINTER FLOOR COVERING by CHANCE CHAUDHRY [id number]
--- NOTE | 2024-04-06 21:35 | ECG_ITS ---
[employer] Test Date: 2024-04-06 Pat Name: Eladio Huizar Department: Room: Gender: Male Regulator Assembler: : 2000 Requested By: Kobe Medellin Order Number: [id number] Farah MD: Victor Manuel Bocanegra M.D. Measurements Intervals [place] Rate: 115 P: 34 IN: 156 QRS: -12 QRSD: 104 T: 50 QT: 310 QTc: 429 Interpretive Statements SINUS TACHYCARDIA POSSIBLE LEFT ATRIAL ENLARGEMENT [-0.1mV P-WAVE IN V1/V2] LOW QRS VOLTAGE IN PRECORDIAL LEADS [QRS DEFLECTION < 1.0 mV IN CHEST LEADS] INCOMPLETE RIGHT BUNDLE BRANCH BLOCK [90+ ms QRS DURATION, TERMINAL R IN V1/V2, 40+ ms S IN I/aVL/V4/V5/V6] POSSIBLE ANTERIOR MYOCARDIAL INFARCTION , OF INDETERMINATE AGE [30 ms Q WAVE IN V3/V4, OR R < 0.2 mV IN V4] Compared to ECG 07/24/2023 20:42:00 Low QRS voltage now present. Incomplete right bundle-branch block now present Myocardial infarct finding now present Sinus rhythm no longer present Electronically Signed On 04-06-2024 17:07:55 POULTRY OFFAL WORKER by Victor Manuel Bocanegra M.D. [id number]
== END 2024-04-06 17:40 | disposition home or self-care (01) ==
PROVIDERS: Emergency Provider Emergency Medicine; PCP Family Medicine
DX: R07.9 Chest pain, unspecified (principal); I10 Essential (primary) hypertension; F17.290 Nicotine dependence, other tobacco product, uncomplicated
CPT/HCPCS: 36415; 71045; 80053; 83690; 84484; 85025; 85378; 93005; 96374; 99285; J3490

== ENCOUNTER 2024-04-11 12:44 | Emergency (ER) | payer SELFPAY ==
--- NOTE | 2024-04-11 12:45 | ECG_ITS ---
[employer] [facility] Test Date: 2024-04-11 Pat Name: Eladio Huizar Department: Room: Gender: Male Spanish Interpreter: : 2000 Requested By: Kobe Medellin Order Number: [id number] Gagan MD: CHANCE CHAUDHRY Measurements Intervals [place] Rate: 81 P: 18 TX: 155 QRS: -1 QRSD: 108 T: 32 QT: 341 QTc: 396 Interpretive Statements SINUS RHYTHM INCOMPLETE RIGHT BUNDLE BRANCH BLOCK [90+ ms QRS DURATION, TERMINAL R IN V1/V2, 40+ ms S IN I/aVL/V4/V5/V6] MODERATE ST DEPRESSION [0.05+ mV ST DEPRESSION] Compared to ECG 04/06/2024 17:21:14 ST (T wave) deviation now present Electronically Signed On 04-13-2024 23:29:46 PSYCHIATRY TEACHER by CHANCE CHAUDHRY [id number]
[2024-04-11 12:48] VITALS: BP 163/85; PULSE 85; RESP 16; TEMP 36.7; O2SAT 98; BMI 42.5
== END 2024-04-11 13:19 | disposition left against medical advice (07) ==
PROVIDERS: Emergency Provider Family Medicine; PCP Family Medicine
DX: Z53.21 Procedure and treatment not carried out due to patient leaving prior to being seen by health care provider (principal)
CPT/HCPCS: 93005

== ENCOUNTER → 2024-04-18 16:30 | Outpatient (BNVA) | payer SELFPAY | PROVIDERS: PCP Family Medicine; Visit Provider Nurse Practitioner | DX: J02.9 Acute pharyngitis, unspecified (principal); Z20.828 Contact with and (suspected) exposure to other viral communicable diseases | CPT/HCPCS: 87400; 87880 ==

== ENCOUNTER 2024-04-20 06:52 | Emergency (ER) | payer SELFPAY ==
[2024-04-20 07:03] VITALS: BP 137/98; PULSE 94; RESP 17; TEMP 37.1; O2SAT 98; BMI 45.3
--- NOTE | 2024-04-20 07:12 | XR_ITS ---
WS: [id number] Portable AP upright chest, 04/20/2024 Clinical Data: congestion Comparison: Portable chest, 04/06/2024 Findings: No nodules, masses or effusions are seen. The heart is normal. The pulmonary vascularity is not increased. No pneumonia or pneumothorax is seen. XR/XR chest 1V portable [id number] Impression: Negative chest.
--- NOTE | 2024-04-20 07:12 | W.ED.URI ---
HPI - URI/Sore Throat General: Chief Complaint: Upper Respiratory Infection Stated Complaint: conjestion Time Seen by Provider: 04/20/24 07:04 Source: patient and family Mode of arrival: ambulatory Limitations: no limitations History of Present Illness: Patient is a 23-year-old male who presents to ED today with a complaint of cough/chest congestion. He states several days ago he had a fever of 102.4, chills, body aches, sore throat. He states he was seen at a walk-in clinic and had negative strep and flu testing performed. He feels like most of his symptoms have improved apart from his cough and chest congestion and feeling like he cannot breathe . Denies hemoptysis. He has not noticed any swelling to his legs or weight gain. He arrives clinically in no acute distress with completely stable vital signs. Patient states he was given some type of liquid cough medicine at the walk-in clinic but this is not helping. MD elicited complaint: cough Onset (ago): day(s) Consistency: constant Severity: moderate Description of mucous: clear Able to tolerate fluids by mouth: Yes Exacerbating factors: nothing Relieving factors: nothing Associated symptoms: Deny chills, chest pain, diarrhea, ear or mastoid pain, fever(s), headache(s), nasal congestion, nausea, sinus pain or vomiting Related Data Home Medications Medication Instructions Recorded Confirmed buspirone 10 mg tablet 10 mg PO TID 04/18/24 04/18/24 Previous Rx's Medication Instructions Recorded omeprazole magnesium 20 mg 20 mg PO BEDTIME #90 tabs 03/06/24 tablet,delayed release (Prilosec OTC) dicyclomine 20 mg tablet 40 mg (2 x 20 mg) PO TID PRN 03/07/24 abdominal pain #180 tabs metoprolol succinate 50 mg 50 mg PO DAILY #30 tabs 04/06/24 tablet,extended release 24 hr promethazine-DM 6.25 mg-15 mg/5 mL 5 ml PO Q4H PRN cough #118 mL 04/18/24 oral syrup Allergies Allergy/AdvReac Type Severity Reaction Status Date / Time No Known Allergies Allergy Verified 04/18/24 16:24 Review of Systems Const: Denies: fever(s), chills, body aches, fatigue or malaise ENMT: Reports: odynophagia; Denies: ear or mastoid pain, nasal discharge, nasal congestion or sinus pain Card: Denies: chest pain Resp: Reports: dyspnea, non-productive cough and chest congestion; Denies: wheezing or hemoptysis GI: Denies: nausea, vomiting or diarrhea : Denies: flank pain or dysuria Musc: Denies: neck pain, back pain, extremity pain, extremity swelling, joint pain or joint swelling Skin/Breast: Denies: rash Neuro: Denies: headache(s), numbness in extremities, weakness in extremities, sensory changes or dizziness PFSH ED PFSH: Medical History Cannabis use disorder, mild, abuse Tobacco use disorder No pertinent past medical history Social History Smoking and tobacco/nicotine status: former use of tobacco/nicotine Alcohol intake: never Substance/Drug Use: current Substance/Drug use frequency: daily Adopted: No service: No 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 Current occupational exposures/hazards: Yes Current gender identity: Male Physical Exam Const: COMMON NORMALS: no acute distress, patient oriented x3, no limitations, alert and well nourished GENERAL APPEARANCE: cooperative NUTRITIONAL APPEARANCE: obese (BMI 45.4) HENMT: COMMON NORMALS: normocephalic, atraumatic and Normal external nose present HEAD & SCALP: normal to inspection, normocephalic and atraumatic FACE & SINUS: normal facial exam and sinuses nontender NOSE: Normal external nose present MOUTH: Normal oral and palatal mucosa present and lip normal THROAT: posterior oropharynx normal and tonsils normal Eye: GENERAL EYE: appearance normal, both eyes and all related structures Neck/C-Spine: COMMON NORMALS: no lymphadenopathy Chest: COMMONS NORMALS: normal inspection of the chest and normal palpation of entire chest wall Resp: COMMON NORMALS: normal respiratory effort and clear to auscultation bilaterally AUSCULTATION: clear to auscultation bilaterally Cardio: COMMON NORMALS: regular rate and regular rhythm RATE: regular rate RHYTHM: regular rhythm Extremity: COMMON NORMALS: no clubbing, cyanosis or edema, no calf tenderness and no pedal edema GENERAL: Yes normal exam except as noted Neuro: COMMON NORMALS: patient oriented x3, moves all extremities, no focal motor deficits, no sensory deficits noted and gait normal SENSORIUM/ORIENTATION: Yes alert Skin: COMMON NORMALS: no rashes or lesions noted GENERAL SKIN EXAM: no rashes or lesions noted Course Vital Signs: Vital signs: Vital Signs Temperature 98.7 F 04/20/24 07:03 Pulse Rate 94 04/20/24 07:03 Respiratory Rate 17 04/20/24 07:03 Blood Pressure 137/98 04/20/24 07:03 Pulse Oximetry 98 04/20/24 07:03 Oxygen Delivery Me thod Room Air 04/20/24 07:03 MDM - URI/Sore Throat Medical Decision Making Patient clinically appears in absolutely no acute distress. His vital signs are stable. His CXR is unremarkable. There is no indication for additional testing or blood work today. Patient was given instructions on conservative therapies regarding his cough. He can follow-up with primary care in 1 to 2 weeks if symptoms do not seem to be improving. Return to ED precautions discussed. Differential Diagnosis Likely upper respiratory infection, viral infection, bronchitis and influenza Medical Records I reviewed the patient's medical records. XR interpretation done by ED provider, pending radiology final review Discharge Plan Discharge Patient Disposition: Home Clinical Impression: Viral upper respiratory tract infection with cough Condition: Stable Prescriptions: No Action buspirone 10 mg tablet 10 mg PO TID promethazine-DM 6.25-15 mg/5 mL syrup 5 ml PO Q4H PRN (Reason: cough) Qty: 118 0RF Rx Instructions: Do not exceed more than 30ml/24hour period (6 doses) Prilosec OTC 20 mg tablet,delayed release (DR/EC) 20 mg PO BEDTIME Qty: 90 1RF dicyclomine 20 mg tablet 40 mg PO TID PRN (Reason: abdominal pain) Qty: 180 2RF metoprolol succinate 50 mg tablet extended release 24 hr 50 mg PO DAILY Qty: 30 0RF Discharge Orders: Discharge ED (Routine); Ordered 04/20/24 Ordered By: Earnestine Ro Referrals: Sung Franks MD [Primary Care Provider] - Patient Instructions: Upper Respiratory Infection (DC) Activity Restrictions/Additional Instructions: As we discussed, your chest x-ray here was unremarkable. We discussed conservative therapies regarding your cough including [id number]-[id number] cough and cold medications, lemon/honey, elderberry syrup, humidifier, chest rubs, etc. you may follow-up with primary care in 1 to 2 weeks if symptoms do not seem to be improving. I hope you begin to feel better soon. Coding Level of Care Code ED Account Retention Representative for Justin Oliveros
[2024-04-20 08:02] VITALS: BP 143/88; PULSE 80; O2SAT 98
== END 2024-04-20 08:06 | disposition home or self-care (01) ==
PROVIDERS: Emergency Provider Physician Assistant; PCP Family Medicine
DX: J06.9 Acute upper respiratory infection, unspecified (principal); Z87.891 Personal history of nicotine dependence
CPT/HCPCS: 71045; 99283

== ENCOUNTER 2024-05-22 20:35 | Emergency (ER) | payer SELFPAY ==
[2024-05-22 20:41] VITALS: BP 140/87; PULSE 87; RESP 18; TEMP 36.3; O2SAT 99; BMI 44.4
--- NOTE | 2024-05-22 20:44 | ECG_ITS ---
[facility] Date: 2024-[facility]-22 Pat Name: Eladio Huizar Department: Room: Gender: Male Choral Director: : 2000 Requested By: Alesia Cameron Order Number: [id number] Gagan MD: CHANCE CHAUDHRY Measurements Intervals [place] Rate: 85 P: 18 MS: 166 QRS: 3 QRSD: 106 T: 18 QT: 339 QTc: 405 Interpretive Statements SINUS RHYTHM MINIMAL VOLTAGE CRITERIA FOR LVH, CONSIDER NORMAL VARIANT [MEETS CRITERIA IN ONE OF: R(aVL), S(V1), R(V5), R(V5/V6)+S(V1)] Compared to ECG 04/11/2024 12:45:46 Incomplete right bundle-branch block no longer present ST (T wave) deviation no longer present Electronically Signed On 05-22-2024 23:30:35 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
== END 2024-05-22 21:52 | disposition left against medical advice (07) ==
PROVIDERS: Emergency Provider Family Medicine; PCP Nurse Practitioner
DX: Z53.21 Procedure and treatment not carried out due to patient leaving prior to being seen by health care provider (principal); Z01.89 Encounter for other specified special examinations
CPT/HCPCS: 93005

== ENCOUNTER 2024-05-27 10:58 | Emergency (ER) | payer SELFPAY ==
--- NOTE | 2024-05-27 11:00 | XRR_ITS ---
PROCEDURE INFORMATION: Exam: XR Chest Exam date and time: 05/27/2024 11:32 AM Age: 23 years old Clinical indication: Chest pressure; Intermittent lt chest pain x 2mo; HTN TECHNIQUE: Imaging protocol: Radiologic exam of the chest. Views: 1 view. COMPARISON: CR XR chest 1V portable [id number] 04/20/2024 7:13 AM FINDINGS: Lungs: No infiltrate. Pleural spaces: Unremarkable. No pleural effusion. No pneumothorax. Heart/Mediastinum: There is mild cardiomegaly. Bones/joints: Unremarkable. XR/XR chest 1V portable [id number] IMPRESSION: 1. No acute findings. 2. Mild cardiomegaly. Pericardial effusion not excluded.
--- NOTE | 2024-05-27 11:03 | ECG_ITS ---
[facility] Test Date: 2024-05-27 Pat Name: Eladio Huizar Department: Room: Gender: Male Limnologist: : 2000 Requested By: Kobe Medellin Order Number: [id number] Farah MD: Sheela Quevedo M.D. 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 [id number]
[2024-05-27 11:25] VITALS: BP 143/87; PULSE 76; RESP 18; TEMP 36.7; O2SAT 99; BMI 43.8
[2024-05-27 11:30] VITALS: BP 143/87; O2SAT 97
--- NOTE | 2024-05-27 11:37 | W.ED.CHESTPA ---
HPI - Chest Pain General: Chief Complaint: Chest Pain Stated Complaint: chest pain Time Seen by Provider: 05/27/24 11:27 History of Present Illness: This is a 23-year-old man with a history of obesity and hypertension who presents emergency room with chest pain. He has been having episodes that last 5 to 10 seconds a very sharp pain in his left chest. He will have some pain into his left arm when it happens. He says issues been going on for couple months but worse over the last 2 weeks. He has been having some palpitations. And now these pains. No nausea or vomiting. No diaphoresis. No lower extremity swelling. No fever. No cough. Related Data Home Medications ?Medication ?Instructions ?Recorded ?Confirmed buspirone 10 mg tablet 10 mg PO TID 04/18/24 05/27/24 acetaminophen 500 mg tablet 1,000 mg PO QID PRN Fever Or Pain 04/20/24 05/27/24 (Tylenol Extra Strength) ibuprofen 200 mg tablet (Advil) 400 mg PO Q6H PRN Fever Or Pain 04/20/24 05/27/24 magnesium 250 mg tablet 250 mg PO DAILY 04/20/24 05/27/24 Previous Rx's ?Medication ?Instructions ?Recorded omeprazole magnesium 20 mg 20 mg PO BEDTIME #90 tabs 03/06/24 tablet,delayed release (Prilosec OTC) dicyclomine 20 mg tablet 40 mg (2 x 20 mg) PO TID PRN 03/07/24 abdominal pain #180 tabs metoprolol succinate 50 mg 50 mg PO DAILY #30 tabs 04/06/24 tablet,extended release 24 hr Allergies Allergy/AdvReac Type Severity Reaction Status Date / Time No Known Allergies Allergy Verified 05/22/24 20:50 Review of Systems Narrative: Constitutional symptoms: Negative except as documented in HPI. Skin symptoms: Negative except as documented in HPI. Eye symptoms: Negative except as documented in HPI. ENMT symptoms: Negative except as documented in HPI. Respiratory symptoms: Negative except as documented in HPI. Cardiovascular symptoms: Negative except as documented in HPI. Gastrointestinal symptoms: Negative except as documented in HPI. Genitourinary symptoms: Negative except as documented in HPI. Musculoskeletal symptoms: Negative except as documented in HPI. Neurologic symptoms: Negative except as documented in HPI. Psychiatric symptoms: Negative except as documented in HPI. Endocrine symptoms: Negative except as documented in HPI. 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 Skin: Warm, dry. Head: Normocephalic, atraumatic. Neck: Supple, trachea midline. Eye: Extraocular movements are intact. Ears, nose, mouth and throat: mucosa moist. Cardiovascular: Regular, Normal peripheral perfusion. Respiratory: Lungs are clear to auscultation, respirations are non-labored, breath sounds are equal, Symmetrical chest wall expansion. Gastrointestinal: Soft, Nontender, Non distended Musculoskeletal: Normal ROM, no deformity. Neurological: Alert and oriented, No focal neurological deficit observed. Psychiatric: Cooperative, appropriate mood & affect. Course Vital Signs: Vital signs: Vital Signs Temperature 98.1 F 05/27/24 11:25 Pulse Rate 115 H 05/27/24 11:59 Respiratory Rate 20 H 05/27/24 13:10 Blood Pressure 131/75 05/27/24 13:10 Pulse Oximetry 99 05/27/24 13:10 Oxygen Delivery Me thod Room Air 05/27/24 11:25 MDM - Chest Pain Medical Decision Making Differential diagnosis for patient with chest pain includes but is not limited to and based on the above HPI, review of systems and physical exam: Pneumonia. unstable angina. angina. Acute coronary syndrome / SC. Pulmonary embolism. Costochondritis / musculoskeletal. Pleurisy. Pericarditis. Esophageal spasm. Pancreatis. Cholecystitis. Orders placed to evaluate differential diagnosis based on the above differential, HPI and physical exam EKG: Time 1103. Rate 76. Normal sinus rhythm, No ST-T changes, no ectopy, normal MN & QRS intervals, This was reviewed and interpreted by myself the ER physician at 1110. Chest x-ray: No acute process. No infiltrate. No pneumothorax. This was reviewed and interpreted by myself the emergency room physician. I also reviewed the radiology report. Radiologist read that there might be cardiomegaly and pleural effusion. CT was ordered. CT of the chest with contrast: No acute process. No effusion. No cardiomegaly. This was reviewed and interpreted by myself the emergency room physician. I also reviewed the radiology report. Lab Review: Laboratory results were reviewed and interpreted by myself the emergency room physician. No leukocytosis. No anemia. No renal failure. D-dimer is negative so no pulmonary embolism or DVT. Troponin is negative. EKG is nonischemic. Chest x-ray shows no signs of cardiomegaly or infiltrates. I reviewed the patient's medical record. Reexamination: Patient remained stable. No increased work of breathing. No altered mental status. No focal motor deficits. I discussed all the findings with the patient. We discussed that a definitive diagnosis may have to be through his PCP but discussed that we have ruled out pulmonary embolism, cardiomegaly, cardiac dysrhythmias, cardiac ischemia, pneumonia Assessment and plan: Noncardiac chest pain - Discharged home - Discussed plan with patient. Answered any questions. - Evaluation and treatment of this problem were appropriate in the emergency setting. Lab Data 05/27/24 11:45 05/27/24 11:45 Radiology Impressions Chest X-Ray 05/27/24 11:00 IMPRESSION: 1. No acute findings. 2. Mild cardiomegaly. Pericardial effusion not excluded. Chest CT 05/27/24 12:39 IMPRESSION: 1. No acute findings. 2. No significant cardiomegaly. The enlarged appearance of the cardiac silhouette on the radiograph most likely was related to apical lordotic positioning. No pericardial effusion. Laboratory Results WBC 8.14 10^3/uL (3.29-11.43) 05/27/24 11:45 RBC 4.93 10^6/uL (3.85-5.65) 05/27/24 11:45 Hgb 14.50 g/dL (11.27-16.99) 05/27/24 11:45 Hct 44.4 % (37-53) 05/27/24 11:45 MCV 90.1 fl (82-101) 05/27/24 11:45 MCH 29.4 pg (27-33) 05/27/24 11:45 MCHC 32.7 g/dL (30-55) 05/27/24 11:45 RDW 13.1 % (12.1-15.1) 05/27/24 11:45 Plt Count 249 10^3/cmm (157-399) 05/27/24 11:45 MPV 10.6 fL (7.4-10.4) H 05/27/24 11:45 Neut % (Auto) 61.2 % 05/27/24 11:45 Lymph % (Auto) 28.5 % 05/27/24 11:45 [place] % (Auto) 8.2 % 05/27/24 11:45 Eos % (Auto) 1.2 % 05/27/24 11:45 Baso % (Auto) 0.5 % 05/27/24 11:45 Neut # (Auto) 4.98 10^3/uL (1.8-7.7) 05/27/24 11:45 Lymph # (Auto) 2.3 10^3/uL (0.8-4.8) 05/27/24 11:45 [place] # (Auto) 0.7 10^3/uL (0.2-0.9) 05/27/24 11:45 Eos # (Auto) 0.1 10^3/uL (0.0-0.8) 05/27/24 11:45 Baso # (Auto) 0.0 10^3/uL (0.0-0.1) 05/27/24 11:45 Nucleated RBC % (auto) 0 % 05/27/24 11:45 Nucleated RBCs # 0.0 /100WBC 05/27/24 11:45 D-Dimer 0.30 ug/mLFEU (0-0.59) 05/27/24 11:45 Sodium 139 mmol/L (136-145) 05/27/24 11:45 Potassium 4.3 mmol/L (3.5-5.1) 05/27/24 11:45 Chloride 105 mmol/L (98-107) 05/27/24 11:45 Carbon Dioxide 23 mmol/L (22-29) 05/27/24 11:45 Anion Gap 15.3 (5-19) 05/27/24 11:45 BUN 17 mg/dL (6-20) 05/27/24 11:45 Creatinine 0.9 mg/dL (0.7-1.2) 05/27/24 11:45 GFR Calculation 102.8 mL/min (90-130) 05/27/24 11:45 Glucose 113 mg/dL (65-115) 05/27/24 11:45 Calculated Osmolality 290 mOsm/kg (285-295) 05/27/24 11:45 Calcium 9.3 mg/dL (8.5-10.5) 05/27/24 11:45 Total Bilirubin 0.3 mg/dL (0.15-1.2) 05/27/24 11:45 AST 18 U/L (0-40) 05/27/24 11:45 ALT 30 U/L (0-41) 05/27/24 11:45 Alkaline Phosphatase 85 U/L (40-130) 05/27/24 11:45 Troponin T Baseline < 6 ng/L (0-15) 05/27/24 11:45 Total Protein 6.8 g/dL (6.6-8.7) 05/27/24 11:45 Albumin 4.4 g/dL (3.5-5.2) 05/27/24 11:45 Globulin 2.4 g/dL (1.3-4.6) 05/27/24 11:45 All radiology interpretation(s) finalized by discharge Discharge Plan Discharge Patient Disposition: Home Clinical Impression: Non-cardiac chest pain Condition: Stable Prescriptions: No Action buspirone 10 mg tablet 10 mg PO TID Prilosec OTC 20 mg tablet,delayed release (DR/EC) 20 mg PO BEDTIME Qty: 90 1RF dicyclomine 20 mg tablet 40 mg PO TID PRN (Reason: abdominal pain) Qty: 180 2RF metoprolol succinate 50 mg tablet extended release 24 hr 50 mg PO DAILY Qty: 30 0RF acetaminophen [Tylenol Extra Strength] 500 mg Tablet 1,000 mg PO QID PRN (Reason: Fever Or Pain) ibuprofen [Advil] 200 mg Tablet 400 mg PO Q6H PRN (Reason: Fever Or Pain) magnesium 250 mg Tablet 250 mg PO DAILY Discharge Orders: Discharge ED (Routine); Ordered 05/27/24 Ordered By: Alesia Avina Referrals: Marysol Livingston, VIOL[facility] REPAIRER [Primary Care Provider] - Discharge Diet: Usual diet Discharge Activity: Increase activity as tolerated Patient Instructions: Noncardiac Chest Pain (ED), Opioid Safety, Pain Management Activity Restrictions/Additional Instructions: Thank you for choosing [facility] for your healthcare needs today. Please realize this is an emergency room and that we are providing you with a medical screening exam and this may not be complete and all inclusive of all the testing and or work up that you may need to determine your ailment or severity of your illness. You have been screened and evaluated and felt safe for discharge. Health conditions do change or evolve sometimes and as such it is important that you follow up with your Primary Doctor to be re checked, 3-5 days is a general good time frame for follow up. You are always welcome to return to the ED for re assessment if your symptoms are worsening or you have new concerns Print Language: Turkmen Coding Level of Care Code ED Percussion Instructor for Justin Oliveros
[2024-05-27 11:50] LABS: Basophils % 0.5 %; Eosinophils # 0.1 10^3/uL (0.0-0.8); Eosinophils % 1.2 %; Hematocrit 44.4 % (37-53); Lymphocytes # 2.3 10^3/uL (0.8-4.8); Lymphocytes % 28.5 %; Mean Corpuscular HGB Conc 32.7 g/dL (30-55); Mean Corpuscular Hemoglobin 29.4 pg (27-33); Mean Corpuscular Volume 90.1 fl (82-101); Mean Platelet Volume 10.6 fL (7.4-10.4); Monocytes # 0.7 10^3/uL (0.2-0.9); Monocytes % 8.2 %; Neutrophils # 4.98 10^3/uL (1.8-7.7); Neutrophils % 61.2 %; Nucleated Red Blood Cells % 0 %; Platelet Count 249 10^3/cmm (157-399); Red Blood Count 4.93 10^6/uL (3.85-5.65); Red Cell Distribution Width 13.1 % (12.1-15.1); White Blood Count 8.14 10^3/uL (3.29-11.43)
[2024-05-27 11:59] VITALS: BP 140/87; PULSE 115; RESP 20; O2SAT 98
[2024-05-27 12:09] LABS: Troponin(5th) Baseline < 6 ng/L (0-15)
[2024-05-27 12:14] LABS: Alanine Aminotransferase 30 U/L (0-41); Albumin Level 4.4 g/dL (3.5-5.2); Alkaline Phosphatase 85 U/L (40-130); Aspartate Amino Transferase 18 U/L (0-40); Blood Urea Nitrogen 17 mg/dL (6-20); Calcium 9.3 mg/dL (8.5-10.5); Carbon Dioxide 23 mmol/L (22-29); Chloride 105 mmol/L (98-107); Creatinine Clr Calc Pharmacy 208.3438; Globulin 2.4 g/dL (1.3-4.6); Glomerular Filtration Rate 102.8 mL/min (90-130); Glucose 113 mg/dL (65-115); Osmolality Calculated 290 mOsm/kg (285-295); Sodium 139 mmol/L (136-145); Total Bilirubin 0.3 mg/dL (0.15-1.2); Total Protein 6.8 g/dL (6.6-8.7)
[2024-05-27 12:15] LABS: Anion Gap 15.3 (5-19); Potassium 4.3 mmol/L (3.5-5.1)
--- NOTE | 2024-05-27 12:39 | CTR_ITS ---
PROCEDURE INFORMATION: Exam: CT Chest With Contrast; Diagnostic Exam date and time: 05/27/2024 12:55 PM Age: 23 years old Clinical indication: Abnormal findings; Abnormal radiologic exam of lung or chest; Additional info: Abnormal chest xray TECHNIQUE: Imaging protocol: Diagnostic computed tomography of the chest with contrast. Radiation optimization: All CT scans at this facility use at least one of these dose optimization techniques: automated exposure control; mA and/or kV adjustment per patient size (includes targeted exams where dose is matched to clinical indication); or iterative reconstruction. Contrast material: OMNI 350; Contrast volume: 100 ml; Contrast route: INTRAVENOUS (IV); COMPARISON: CR (CHEST, ) 05/27/2024 11:32 AM RADIATION DOSE METRICS: Total DLP (mGy-cm): 827.18 FINDINGS: Thymus: Small amount of residual thymic tissue in the anterior mediastinum. Lungs: Unremarkable. No consolidation. No masses. Pleural spaces: Unremarkable. No pneumothorax. No pleural effusion. Heart: No significant cardiomegaly. The somewhat enlarged appearance of the cardiac silhouette on the radiograph most likely was related to apical lordotic positioning. No pericardial effusion. Lymph nodes: Unremarkable. No enlarged lymph nodes. Vasculature: Motion artifact in the ascending aorta. Aorta otherwise normal. Liver: Mild hepatic steatosis noted. Bones/joints: Unremarkable. No acute fracture. Soft tissues: Unremarkable. CT/CT chest w con* [id number] IMPRESSION: 1. No acute findings. 2. No significant cardiomegaly. The enlarged appearance of the cardiac silhouette on the radiograph most likely was related to apical lordotic positioning. No pericardial effusion.
[2024-05-27] MEDS: iohexol 350 mg/mL 500 mL Btl (per mL) IV (13:03)
[2024-05-27 13:10] VITALS: BP 131/75; RESP 20; O2SAT 99
[2024-05-27 13:58] VITALS: BP 157/99; PULSE 73; RESP 20; O2SAT 97
== END 2024-05-27 13:59 | disposition home or self-care (01) ==
PROVIDERS: Emergency Provider Emergency Medicine; PCP Nurse Practitioner
DX: R07.89 Other chest pain (principal); Z87.891 Personal history of nicotine dependence
CPT/HCPCS: 71045; 71260; 80053; 84484; 85025; 85378; 93005; 99285

== ENCOUNTER 2024-09-30 08:06 | Emergency (ER) | payer SELFPAY ==
--- OUTSIDE RECORDS SUMMARY | 2024-04-12 06:00 | XMS_ITS ---
Author Organization [facility] Address [address] [facility] [address] [place] [address] Care Team Providers Care Research Environmental Engineer Name Role Phone Marysol Livingston Unavailable [phone] Allergies Allergen (clinical drug ingredient) Drug/Non Drug Allergy documented on EMR Reaction Allergy Type Onset Date Status Effexor mean/angry Drug Allergy Active REASON FOR VISIT chest pressure, high blood pressure; anxiety attacks; ER [facility] 04/06/24 (called for records) Medications Medication SIG (Take, Route, Frequency, Duration) Notes Start Date End Date Status busPIRone HCl 5 MG as directed. Orally Twice a day; Duration: 30 days 1 tab po bid x1 week, then can increase to 2 in am and 1 in pm if needed. 04/12/2024 06/11/2024 Active Metoprolol Succinate ER 50 MG 1 tablet Orally Once a day 04/06/2024 Active Dicyclomine HCl 20 MG 2 tabs Orally three times a day as needed IBS Active Metamucil [facility] Fiber Active Chlorzoxazone 500 MG 1 tablet as needed for muscle pain/spasm Orally Three times a day; Duration: 7 days 04/13/2024 04/27/2024 Active Esomeprazole Magnesium 40 MG 1 capsule 1/2 to 1 hour before morning meal Orally Once a day Active Social History Sex Assigned At : Social History Observation Description Sex Assigned At Male Problems Problem Type SNOMED Code ICD Code Onset Dates Problem Status W/U Status Risk Notes Problem Essential hypertension (28114605) Essential (primary) hypertension (I10) Active confirmed Vital Signs Blood pressure systolic 138 mm Hg 04/12/19 25 Blood pressure diastolic 84 mm Hg 025 Heart Rate 66 /min 04/12/2024 Temperature 98.3 degrees Fahrenheit 04/12/19 25 Oximetry 98 % 04/12/2024 Weight 375.8 lbs 04/12/2024 Weight-kg 170.46 kg 04/12/2024 Height 76 in 04/12/2024 Height-cm 193.04 cm 04/12/2024 BMI 45.74 kg/m2 04/12/2024 Encounters [facility]counter [facility] Date [facility] [address] [place] [address] 04/12/2024 Marysol Livingston Anxiety, generalized F41.1 ; Trapezius muscle spasm M62.838 and Essential (primary) hypertension I10 Assessments Encounter Date Diagnosis (ICD Code) Assessment Notes Treatment Notes Treatment Clinical Notes Section Notes 04/12/2024 Anxiety, generalized (ICD-10 - F41.1) 04/12/2024 Trapezius muscle spasm (ICD-10 - M62.838) 04/12/2024 Essential (primary) hypertension (ICD-10 - I10) 04/12/2024 Other He will report progress, by phone. If not improving. He will return to clinic. To ER as needed any worsening symptoms. Plan Of Treatment Medication Medication Name Sig Start Date Stop Date Notes busPIRone HCl 5 MG as directed. Orally Twice a day; Duration: 30 days 04/12/2024 06/11/2024 1 tab po bid x1 week, then can increase to 2 in am and 1 in pm if needed. Metoprolol Succinate ER 50 MG 1 tablet Orally Once a day 04/06/2024 Chlorzoxazone 500 MG 1 tablet as needed for muscle pain/spasm Orally Three times a day; Duration: 7 days 04/13/2024 04/27/2024 Treatment Notes Assessment Notes Other He will report progress, by phone. If not improving. He will return to clinic. To ER as needed any worsening symptoms. Next Appt Details Follow Up: prn. Will call to report progress, Reason: Provider Name:Marysol Livingston , 10/24/2024 02:50:00 PM, [address], [place], [address], Progress Notes * KIMBERLY DORANDOB:2000 (24 yo M)Acc No.[id number]:04/12/2024 Patient: KIMBERLY FIGUEROA Provider: Jamin Livingston :2000 A ge:23 Y S ex:Male Date:04/12/2024 [address] [facility] Subjective: * Chief Complaints: * 1 . chest pressure, high blood pressure; anxiety attacks; ER [facility] 04/06/24 (called for records). * HPI: A nxiety / stress: The anxiety has been present for y ears p reviously tried Paxil/Klonopin/effexor m arijuana. Anxiety is related to n othing. Symptoms include f eeling nervous, restlessness. Anxiety is relieved by l aying in bed. Anxiety is associated with c hest pain, sweating, palpitations. Overall condition i s worsening. * ROS: G eneral / Constitutional: Patient denies c hange in appetite , chills , fever. P atient complains of s leep disturbance. R espiratory: Patient denies c ough , shortness of breath at rest , shortness of breath with exertion , wheezing. C ardiovascular: Patient complains of p alpitations. G astrointestinal: Patient denies a bdominal pain , diarrhea , nausea , vomiting. G enitourinary: Patient denies b lood in the urine , frequent urination.? M usculoskeletal: Patient denies p ainful joints , weakness. P atient complains of m uscle aches, , muscle spasms. N eurologic: Patient denies d izziness , fainting , headache. P sychiatric: Patient complains of a nxiety. c hest pressure-radiates up to left neck and down left arm. * Medical History: * Medications: T aking Metamucil [facility] Fiber , Taking Dicyclomine HCl 20 MG Tablet 2 tabs Orally three times a day as needed IBS, Taking Esomeprazole Magnesium 40 MG Capsule Delayed Release 1 capsule 1/2 to 1 hour before morning meal Orally Once a day , Taking Metoprolol Succinate ER 50 MG Tablet Extended Release 24 Hour 1 tablet Orally Once a day , Medication List reviewed and reconciled with the patient * Allergies: E ffexor: mean/angry - Criticality Low. Objective: * Vitals: B P:138/84mm Hg, HR:66/min, Temp:98.3F, Oxygen sat %:98%, Wt:375.8lbs, Wt-k.46 kg, Ht: 76 in, Ht-cm: 193.04 cm, BMI:45.74Index, Pain scale:01-10, Body Surface Area: 3.02. * Examination: G eneral Examination: General appearance: i n no acute distress, well developed, well nourished. Head: n ormocephalic, atraumatic . Eyes: b oth eyes normal . Nose: n benoit patent . Oral cavity: n ormal . Neck / thyroid: t rachea midline . Heart: n o murmurs, regular rate and rhythm, S1, S2 normal.? Lungs: c lear to auscultation bilaterally. Abdomen: s oft, nontender, nondistended, bowel sounds present, normal. Extremities: n o clubbing, cyanosis, or edema. Peripheral pulses: n ormal 2+ arterial pulses . Neurologic: n onfocal, motor strength normal upper and lower extremities, sensory exam intact. Psych: a lert and oriented x 3 speech is clear and coherent anxious appearing . Assessment: * Assessment: 1. A nxiety, generalized - F41.1 (Primary) 2 . T rapezius muscle spasm - M62.838 3 . E ssential (primary) hypertension - I10 Plan: * Treatment: 2. T rapezius muscle spasm Start Chlorzoxazone Tablet, 500 MG, 1 tablet as needed for muscle pain/spasm, Orally, Three times a day, 7 days, 21 Tablet, Refills 1. 3. E ssential (primary) hypertension Continue Metoprolol Succinate ER Tablet Extended Release 24 Hour, 50 MG, 1 tablet, Orally, Once a day. 4. O thers Notes: He will report progress, by phone. If not improving. He will return to clinic. To ER as needed any worsening symptoms. * Follow Up: p rn. Will call to report progress * Billing Information: * Visit Code: 47294 Office Visit, New Pt., Level 3. * Procedure Codes: * Electronic signature of To Livingston , [email or web address] on 09/30/2024 at 08:11 AM CDT Sign off status: Pending * Provider: Jamin Livingston Date: 0 04/12/2024 Generated for Anil loza/Fachantelg/eTransmitting on: 0 09/30/2024 08:11 AM CDT History and Physical Notes * HPI (History of Present Illness) Category Sub-Category Detail Notes Category Not es Anxiety / stress The anxiety has been present for yearspreviously tried Paxil/Klonopin/effexormarijuana Anxiety is related to nothing Anxiety is relieved by laying in bed Anxiety is associated with chest pain, s weating, palpitations Overall condition is worsening Symptoms include feeling nervous, res tlessness Examination Category Sub-Category Detail Notes Category Not es General Examination General appearance: in no ac leonora distress, well developed, well nourished Head: normocephalic, atrau matic Eyes: both eyes normal Nose: nares patent Neck / thyroid: trachea midline Heart: no murmurs, regular rate and rhythm, S1, S2 normal Lungs: clear to auscultatio n bilaterally Abdomen: soft, nontender, non distended, bowel sounds present, normal Neurologic: nonfocal, motor stre ngth normal upper and lower extremities, sensory exam intact Extremities: no clubbing, cyanosi s, or edema Peripheral pulses: normal 2+ arterial p ulses Psych: alert and oriented x 3 speech is clear and coherent anxious appearing Oral cavity: normal
--- OUTSIDE RECORDS SUMMARY | 2024-09-24 09:20 | XMS_ITS ---
[facility] Address [address] [address] Care Team Providers Care Medication Reconciliation Technician Name Role Phone Marysol Livingston [phone] Allergies Allergen (clinical drug ingredient) Drug/Non Drug Allergy documented on EMR Reaction Allergy Type Onset Date Status Effexor mean/angry Drug Allergy Active REASON FOR VISIT discuss med adjustments Medications Medication SIG (Take, Route, Frequency, Duration) Notes Start Date End Date Status ALPRAZolam 0.25 MG 1 tablet Orally Twice a day As needed for panic attack 09/24/2024 Active Metamucil [facility] Fiber Active Chlorzoxazone 500 MG 1 tablet as needed Orally Three times a day; Duration: 7 days As needed for muscle ache or spasm Not-Taking Dicyclomine HCl 20 MG 2 tabs Orally three times a day as needed IBS Not-Taking Esomeprazole Magnesium 40 MG 1 capsule 1/2 to 1 hour before morning meal Orally Once a day Active Metoprolol Succinate ER 50 mg TAKE 1 TABLET BY MOUTH EVERY DAY FOR 30 DAYS Active Paxil 10 MG 1 tablet in the morning Orally Once a day; Duration: 30 days 09/24/2024 Active Ventolin HFA 108 (90 Base) MCG/ACT 2 puff as needed for cough or congestion Inhalation every 4 hrs; Duration: 14 04/23/2024 Not-Taking busPIRone HCl 10 MG 1/2 tablet Orally Twice a day DOSE DECREASE. has rx on hand Active Social History Sex Assigned At : Social History Observation Description Sex Assigned At Male Problems Problem Type SNOMED Code ICD Code Onset Dates Problem Status W/U Status Risk Notes Problem Panic disorder (F41.0) Active confirmed Vital Signs Blood pressure systolic 130 mm Hg 09/25/19 25 Blood pressure diastolic 68 mm Hg 025 Heart Rate 89 /min 09/24/2024 Temperature 97.8 degrees Fahrenheit 09/25/19 25 Oximetry 99 % 09/24/2024 Weight 383 lbs 09/24/2024 Weight-kg 173.73 kg 09/24/2024 Height 76 in 09/24/2024 Height-cm 193.04 cm 09/24/2024 BMI 46.62 kg/m2 09/24/2024 Encounters Encounter Location Date Provider Diagnosis [address] [address] 09/24/2024 Marysolnicole Livingston Anxiety, generalized F41.1 ; Essential (primary) hypertension I10 ; Mild depression F32.A and Panic disorder F41.0 Assessments Encounter Date Diagnosis (ICD Code) Assessment Notes Treatment Notes Treatment Clinical Notes Section Notes 09/24/2024 Anxiety, generalized (ICD-10 - F41.1) 09/24/2024 Essential (primary) hypertension (ICD-10 - I10) 09/24/2024 Mild depression (ICD-10 - F32.A) 09/24/2024 Panic disorder (ICD-10 - F41.0) 09/24/2024 Other We will add the Paxil. We will decrease the BuSpar...he may even wean off of this pending progress He can use as needed alprazolam for severe panic attack Also, he can try as needed BuSpar instead of the alprazolam Contact info given to patient's for [facility]. He has never seen psychiatrist or been to counseling Call or return if worsening or not improving. Plan Of Treatment Medication Medication Name Sig Start Date Stop Date Notes ALPRAZolam 0.25 MG 1 tablet Orally 09/24/2024 Metoprolol Succinate ER 50 mg TAKE 1 TABLET BY MOUTH EVERY DAY FOR 30 DAYS Paxil 10 MG 1 tablet in the morning Orally Once a day; Duration: 30 days 09/24/2024 busPIRone HCl 10 MG 1/2 tablet Orally Twice a day DOSE DECREASE. has rx on hand Treatment Notes Assessment Notes Other We will add the Paxil. We will decrease the BuSpar...he may even wean off of this pending progress He can use as needed alprazolam for severe panic attack Also, he can try as needed BuSpar instead of the alprazolam Contact info given to patient's for [facility]. He has never seen psychiatrist or been to counseling Call or return if worsening or not improving. Next Appt Details Follow Up: 4 Weeks, Reason: f/u anxiety Provider Name:Marysol Livingston , 10/24/2024 02:50:00 PM, [address], [id number], Progress Notes * KIMBERLY DORANDOB:2000 (24 yo M)Acc No.[id number]:09/24/2024 Patient: KIMBERLY FIGUEROA LORE Provider: Jamin Livingston :2000 A ge:24 Y S ex:Male Date:09/24/2024 [facility] Subjective: * Chief Complaints: * D iscuss med adjustments * HPI: T ransition of Care: here to discuss meds for anxiety/panic attacks. some improvement on the buspar, but not great. still has panic attacks at . sometimes affects his work. some depression. no SI or HI. he has been to ER multiple times b/c of cardiac concerns. less anxious since he had fairly recent chest ct. he reports remote hx of paxil use...worked well for him he has never been to counseling or to psychiatrist. * ROS: G eneral / Constitutional: Patient denies c hange in appetite , chills , fever. P atient complains of s leep disturbance. R espiratory: Patient denies d ifficulty breathing. C ardiovascular: Patient complains of p alpitations. M usculoskeletal: Patient denies p ainful joints , weakness. P atient complains of m uscle aches, , muscle spasms. N eurologic: Patient denies d izziness , fainting , headache. P sychiatric: Patient denies s ubstance abuse, suicidal thoughts. P atient complains of a nxiety, depression, stressors. c hest pressure-radiates up to left neck and down left arm. * Medical History: * Medications: T akingMetamucil MultiHealth Fiber Esomeprazole Magnesium 40 MG Capsule Delayed Release 1 capsule 1/2 to 1 hour before morning meal Orally Once a day busPIRone HCl 10 MG Tablet 1 tablet Orally Twice a day , Notes to Pharmacist: please let pt know this rx is for 10MG, not the 5mg. thanks/mwMetoprolol Succinate ER 50 mg Tablet Extended Release 24 Hour TAKE 1 TABLET BY MOUTH EVERY DAY FOR 30 DAYS Taking Metamucil [facility] Fiber Taking Esomeprazole Magnesium 40 MG Capsule Delayed Release 1 capsule 1/2 to 1 hour before morning meal Orally Once a day Taking busPIRone HCl 10 MG Tablet 1 tablet Orally Twice a day , Notes to Pharmacist: please let pt know this rx is for 10MG, not the 5mg. thanks/mwTaking Metoprolol Succinate ER 50 mg Tablet Extended Release 24 Hour TAKE 1 TABLET BY MOUTH EVERY DAY FOR 30 DAYS Not-TakingVentolin HFA 108 (90 Base) MCG/ACT Aerosol Solution 2 puff as needed for cough or congestion Inhalation every 4 hrs Dicyclomine HCl 20 MG Tablet 2 tabs Orally three times a day as needed IBSChlorzoxazone 500 MG Tablet 1 tablet as needed Orally Three times a day As needed for muscle ache or spasmMedication List reviewed and reconciled with the patientNot-Taking Ventolin HFA 108 (90 Base) MCG/ACT Aerosol Solution 2 puff as needed for cough or congestion Inhalation every 4 hrs Not- Taking Dicyclomine HCl 20 MG Tablet 2 tabs Orally three times a day as needed IBSNot- Taking Chlorzoxazone 500 MG Tablet 1 tablet as needed Orally Three times a day As needed for muscle ache or spasmMedication List reviewed and reconciled with the patient * Allergies: E ffexor: mean/angry - Criticality [place][Allergies Verified] Objective: * Vitals: B P:130/68mm Hg, HR:89/min, Temp:97.8F, Oxygen sat %:99%, Wt:383lbs, Wt-k.73 kg, Ht: 76 in, Ht-cm: 193.04 cm, BMI:46.62Index, Body Surface Area: 3.05. * Examination: G eneral Examination: General appearance: i n no acute distress, well developed, well nourished. Head: n ormocephalic, atraumatic . Eyes: b oth eyes normal . Nose: n benoit patent . Oral cavity: n ormal . Neck / thyroid: t rachea midline . Heart: n o murmurs, regular rate and rhythm, S1, S2 normal.? Lungs: c lear to auscultation bilaterally. Neurologic: c ooperative with exam . Psych: a lert and oriented x 3 speech is clear and coherent anxious appearing..but better than initial visit. Assessment: * Assessment: 1. A nxiety, generalized - F41.1 (Primary) 2 . E ssential (primary) hypertension - I10 3 . M ild depression - F32.A 4 . P anic disorder - F41.0 Plan: * Treatment: 2. E ssential (primary) hypertension Continue Metoprolol Succinate ER Tablet Extended Release 24 Hour, 50 mg, TAKE 1 TABLET BY MOUTH EVERY DAY FOR 30 DAYS. 3. P anic disorder Start ALPRAZolam Tablet, 0.25 MG, 1 tablet, Orally, Twice a day As needed for panic attack, 20, Refills 0. 4. O thers Notes: We will add the Paxil. We will decrease the BuSpar...he may even wean off of this pending progress He can use as needed alprazolam for severe panic attack Also, he can try as needed BuSpar instead of the alprazolam Contact info given to patient's for [facility]. He has never seen psychiatrist or been to counseling Call or return if worsening or not improving. * Procedure Codes: * Follow Up: 4 Weeks (Reason: f/u anxiety) * Billing Information: * Visit Code: 92997 Office Visit, Est Pt., Level 3. * Procedure Codes: * Sign off status: Completed true * Provider: Jamin Livingston Date: 0 09/24/2024 Generated for Anil loza/Leticia/Grisel on: 09/30/2024 08:10 AM CDT History and Physical Notes * Examination Category Sub-Category Detail Notes Category Not es General Examination General appearance: in no ac [place] distress, well developed, well nourished Head: normocephalic, atrau matic Eyes: both eyes normal Nose: nares patent Neck / thyroid: trachea midline Heart: no murmurs, regular rate and rhythm, S1, S2 normal Lungs: clear to auscultatio n bilaterally Neurologic: cooperative with exa m Psych: alert and oriented x 3 speech is clear and coherent anxious appearing..but better than initial visit Oral cavity: normal
[2024-09-30 08:11] VITALS: BP 146/82; PULSE 60; RESP 17; TEMP 36.7; O2SAT 100; BMI 46.2
--- OUTSIDE RECORDS SUMMARY | 2024-09-30 08:11 | XMS_ITS | Patient Health Record ---
[facility] [address] [address] Care Team Providers Care Substitute Bus Driver Name Role Phone Marysol Livingston Unavailable [phone] Allergies Allergen (clinical drug ingredient) Drug/Non Drug Allergy documented on EMR Reaction Allergy Type Onset Date Status Effexor mean/angry Drug Allergy Active Reason For Referral No Information Medications Medication SIG (Take, Route, Frequency, Duration) Notes Start Date End Date Status Metoprolol Succinate ER 50 mg TAKE 1 TABLET BY MOUTH EVERY DAY FOR 30 DAYS Active Paxil 10 MG 1 tablet in the morning Orally Once a day; Duration: 30 days 09/24/2024 Active ALPRAZolam 0.25 MG 1 tablet Orally Twice a day As needed for panic attack 09/24/2024 Active Ventolin HFA 108 (90 Base) MCG/ACT 2 puff as needed for cough or congestion Inhalation every 4 hrs; Duration: 14 04/23/2024 Not-Taking Metamucil [facility] Active busPIRone HCl 10 MG 1/2 tablet Orally Twice a day DOSE DECREASE. has rx on hand Active Chlorzoxazone 500 MG 1 tablet as [...] W/U Status Risk Notes Problem Essential hypertension (05271332) Essential (primary) hypertension (I10) Active confirmed Problem Panic disorder (702829503) Panic disorder (F41.0) Active confirmed Vital Signs Heart Rate 89 /min 09/24/2024 Temperature 97.8 degrees Fahrenheit 09/24/2024 Oximetry 99 % 09/24/2024 Height-cm 193.04 cm 09/24/2024 Blood pressure diastolic 68 mm Hg 09/24/2024 Weight-kg 173.73 kg 09/24/2024 Height 76 in 09/24/2024 Blood pressure systolic 130 mm Hg 09/24/2024 Weight 383 lbs 09/24/2024 BMI 46.62 kg/m2 09/24/2024 Encounters Encounter Location Date Provider Diagnosis [facility] [employer] [address] [address] 04/12/2024 Marysol Livingston Anxiety, generalized F41.1 ; Trapezius muscle spasm M62.838 and Essential (primary) hypertension I10 [facility] [address] [address] 09/24/2024 Marysol Livingston Anxiety, generalized F41.1 ; Essential (primary) hypertension I10 ; Mild depression F32.A and Panic disorder F41.0 [facility] [address] [place] [phone] 04/13/[address] [address] 04/16/2024 [facility] [address] [place] [phone] 04/23/2024 [facility] [address] [place] [phone] 04/25/2024 [facility] [address] [place] [phone] 09/19/2024 Marysol Livingston Assessments Encounter Date Diagnosis (ICD Code) Assessment Notes Treatment Notes Treatment Clinical Notes Section Notes 04/12/2024 Trapezius muscle spasm (ICD-10 - M62.838) 04/12/2024 Anxiety, generalized (ICD-10 - F41.1) 09/24/2024 Essential (primary) hypertension (ICD-10 - I10) 09/24/2024 Anxiety, generalized (ICD-10 - F41.1) 04/12/2024 Essential (primary) hypertension (ICD-10 - I10) 09/24/2024 Mild depression (ICD-10 - F32.A) 09/24/2024 Panic disorder (ICD-10 - F41.0) 04/12/2024 Other He will report progress, by phone. If not improving. He will return to clinic. To ER as needed any worsening symptoms. 09/24/2024 Other We will add the Paxil. [...] worsening or not improving. Plan Of Treatment Next Appt Details Provider Name:Marysol Livingston , 10/24/2024 02:50:00 PM, [address] , [address], [address], Medical (General) History Medical History History ICD Code HTN dep and anxiety panic disorder
--- NOTE | 2024-09-30 08:17 | ECG_ITS ---
[employer] Test Date: 2024-09-30 Pat Name: Eladio Huizar Department: Room: Gender: Male [employer]: : 2000 Requested By: Guy Cameron Order Number: [id number] Reading MD: Measurements Intervals [place] Rate: 68 P: -6 MI: 139 QRS: 2 QRSD: 109 T: 27 QT: 354 QTc: 377 Interpretive Statements SINUS RHYTHM WITH SINUS ARRHYTHMIA POSSIBLE ANTERIOR MYOCARDIAL INFARCTION , OF INDETERMINATE AGE [30 ms Q WAVE IN V3/V4, OR R < 0.2 mV IN V4] Compared to ECG 05/27/2024 11:03:06 Myocardial infarct finding now present Incomplete right bundle-branch block no longer present [email or web address]
--- NOTE | 2024-09-30 08:23 | W.ED.ARRPALP ---
HPI - Arrhythmia/Palpitations General: Chief Complaint: Arrhythmia/Palpitations Stated Complaint: low hr (home taken) Time Seen by Provider: 09/30/24 08:09 History of Present Illness: 24-year-old male presents emergency room patient states he had palpitations folic an irregular heartbeat when he first woke up. He checks his blood pressure the home monitor at home was 120/60 had a heart rate of 49. Has not had any chest pain states symptoms went away when he stood up. He is on metoprolol. Related Data Home Medications ?Medication ?Instructions ?Recorded ?Confirmed buspirone 10 mg tablet 10 mg PO TID 04/18/24 05/27/24 acetaminophen 500 mg tablet 1,000 mg PO QID PRN Fever Or Pain 04/20/24 05/27/24 (Tylenol Extra Strength) ibuprofen 200 mg tablet (Advil) 400 mg PO Q6H PRN Fever Or Pain 04/20/24 05/27/24 magnesium 250 mg tablet 250 mg PO DAILY 04/20/24 05/27/24 Previous Rx's ?Medication ?Instructions ?Recorded omeprazole magnesium 20 mg 20 mg PO BEDTIME #90 tabs 03/06/24 tablet,delayed release (Prilosec OTC) dicyclomine 20 mg tablet 40 mg (2 x 20 mg) PO TID PRN 03/07/24 abdominal pain #180 tabs metoprolol succinate 50 mg 50 mg PO DAILY #30 tabs 04/06/24 tablet,extended release 24 hr Allergies Allergy/AdvReac Type Severity Reaction Status Date / Time No Known Allergies Allergy Verified 05/22/24 20:50 Review of Systems Const: Denies: fever(s) or chills Card: Denies: chest pain Resp: Denies: dyspnea GI: Denies: abdominal pain : Denies: dysuria, urinary frequency or urinary urgency Musc: Denies: neck pain or back pain Skin/Breast: Denies: rash PFSH ED PFSH: Medical History Cannabis use disorder, mild, abuse Tobacco use disorder No pertinent past medical history Social History Smoking and tobacco/nicotine status: former use of tobacco/nicotine Alcohol intake: never Substance/Drug Use: current Substance/Drug use frequency: daily Adopted: No service: No 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 Current occupational exposures/hazards: Yes Current gender identity: Male Physical Exam Const: GENERAL APPEARANCE: cooperative ORIENTATION/CONSCIOUSNESS: Yes awake, Yes oriented to person, Yes oriented to place and Yes oriented to time HENMT: COMMON NORMALS: normocephalic, atraumatic and hearing grossly normal bilaterally HEAD & SCALP: normocephalic and atraumatic Resp: COMMON NORMALS: normal respiratory effort, No retractions, No use of accessory muscles and clear to auscultation bilaterally AUSCULTATION: clear to auscultation bilaterally Cardio: COMMON NORMALS: regular rhythm and No murmurs present (Cardio) RATE: bradycardic RHYTHM: regular rhythm GI: COMMON NORMALS: Soft to palpation and No hepatosplenomegaly present AUSCULTATION: Yes normoactive bowel sounds PALPATION: Yes Soft to palpation, No Tenderness to palpation present (GI), No Guarding due to palpation present (GI) and Yes No hepatosplenomegaly present Extremity: COMMON NORMALS: normal to inspection, capillary refill normal, no clubbing, cyanosis or edema, no calf tenderness and no pedal edema Neuro: SENSORIUM/ORIENTATION: Yes oriented to person, Yes oriented to place and Yes oriented to time Skin: COMMON NORMALS: no rashes or lesions noted GENERAL SKIN EXAM: no rashes or lesions noted Course Vital Signs: Vital signs: Vital Signs Temperature 98.0 F 09/30/24 08:11 Pulse Rate 66 09/30/24 08:40 Respiratory Rate 17 09/30/24 08:11 Blood Pressure 141/84 09/30/24 08:40 Pulse Oximetry 99 09/30/24 08:40 Oxygen Delivery Me thod Room Air 09/30/24 08:11 MDM - Arrhythmia/Palpitations Medical Decision Making Patient started on metoprolol for hypertension. His heart rate now in the emergency room is borderline bradycardic but good his blood pressure is reasonably well-controlled still slightly elevated. Blood pressure from this morning was actually normal tensive. Patient given reassurance that this is likely a side effect of the metoprolol but his blood pressure is well-preserved so there is no reason to change at this point. He had mentioned having some palpitations from his description I suspect these are PACs or PVCs we will put him on a 72-hour Holter monitor. Medical Records I reviewed the patient's medical records. Lab Data I reviewed the patient's lab results. No radiology studies performed this visit Discharge Plan Discharge Patient Disposition: Home Clinical Impression: Bradycardia, Palpitations, Hypertension Condition: Stable Prescriptions: No Action buspirone 10 mg tablet 10 mg PO TID Prilosec OTC 20 mg tablet,delayed release (DR/EC) 20 mg PO BEDTIME Qty: 90 1RF dicyclomine 20 mg tablet 40 mg PO TID PRN (Reason: abdominal pain) Qty: 180 2RF metoprolol succinate 50 mg tablet extended release 24 hr 50 mg PO DAILY Qty: 30 0RF acetaminophen [Tylenol Extra Strength] 500 mg Tablet 1,000 mg PO QID PRN (Reason: Fever Or Pain) ibuprofen [Advil] 200 mg Tablet 400 mg PO Q6H PRN (Reason: Fever Or Pain) magnesium 250 mg Tablet 250 mg PO DAILY Discharge Orders: Discharge ED (Routine); Ordered 09/30/24 Ordered By: Guy Toussaint Referrals: Marysol Livingston FNP [Primary Care Provider, Family Practice] Discharge Diet: Usual diet Discharge Activity: Resume usual activity Patient Instructions: Opioid Safety, Pain Management, Patient Portal & [place] Instructions Activity Restrictions/Additional Instructions: Thank you for choosing [facility] for your healthcare needs today. It is very important that you follow up as instructed or that you return to the Emergency Department should you have concerns or if your condition changes or worsens in any way. You are seen emergency room with concerns of a low heart rate (bradycardia). Your heart rate is normal and your blood pressure is normotensive to slightly elevated. The low heart rate is in part a side effect of metoprolol however since her blood pressure is still tolerating it there is no need to change any of your medications. You also mentioned having some palpitations suspect based on your description of them these are PVCs and PACs (paroxysmal atrial contractions/paroxysmal ventricular contractions). These are benign and do not require any treatment. To confirm this we will have you get a 72-hour Holter monitor and follow-up with your doctor regarding the results of the Holter monitor and your blood pressure. Print Language: Ukrainian Coding Level of Care Code ED Housekeeping Aid for Justin Oliveros
[2024-09-30 08:40] VITALS: BP 141/84; PULSE 66; O2SAT 99
--- NOTE | 2024-10-01 09:31 | DCPLANNER ---
messaged heart care for holter
== END 2024-09-30 08:42 | disposition home or self-care (01) ==
PROVIDERS: Emergency Provider Family Medicine; PCP Nurse Practitioner
DX: R00.1 Bradycardia, unspecified (principal); R00.2 Palpitations; I10 Essential (primary) hypertension; Z87.891 Personal history of nicotine dependence
CPT/HCPCS: 93005; 93010; 99283